=== PATIENT | female | born 1940 | race Caucasian/White ===

== ENCOUNTER → 2020-07-12 08:14 | Outpatient (BNVA) | payer MEDICARE, SELFPAY | PROVIDERS: PCP Internal Medicine; Visit Provider Internal Medicine | DX: I48.19 Other persistent atrial fibrillation (principal); Z95.3 Presence of xenogenic heart valve; Z95.828 Presence of other vascular implants and grafts; Z87.74 Personal history of (corrected) congenital malformations of heart and circulatory system | CPT/HCPCS: 93005; 99212 ==

== ENCOUNTER 2020-07-18 08:14 | Outpatient (REF) | payer MEDICARE, SELFPAY ==
[2020-07-18 11:22] LABS: Basophils Percent Auto 0.7 % (0-2); Monocytes Percent Auto 6.7 % (2-11)
[2020-07-18 11:24] LABS: Eosinophils Absolute Auto 0.4 X10*3/uL (0.0-0.4); Eosinophils Percent Auto 7.6 % (0-4); Hematocrit 39.6 % (37-47); Hemoglobin 12.6 g/dl (12.0-16.0); Imm Gran Abs Auto 0.02 X10*3/uL (0.00-0.03); Imm Gran Pct Auto 0.4 % (0.0-0.4); Lymphocytes Absolute Auto 1.8 X10*3/uL (1.2-4.9); Mean Corpuscular HGB Conc 31.8 g/dl (31.0-35.0); Mean Corpuscular Hemoglobin 28.1 pg (27.0-33.0); Mean Corpuscular Volume 88.4 fL (80-98); Mean Platelet Volume 9.7 fL (9.4-12.3); Monocytes Absolute Auto 0.4 X10*3/uL (0.1-1.2); Neutrophils Absolute Auto 2.9 X10*3/uL (2.0-8.3); Neutrophils Percent Auto 52.6 % (45-73); Red Blood Count 4.48 X10*6/uL (4.20-5.50); Red Cell Distribution Width 14.2 % (11.0-16.0); White Blood Count 5.5 X10*3/uL (4.8-10.8)
[2020-07-18 11:28] LABS: MANUAL DIFF FLAG NO; Platelet Count 126 X10*3/uL (160-400)
[2020-07-18 12:01] LABS: Alanine Aminotransferase 9 U/L (0-31); Albumin Level 4.1 g/dL (3.5-5.0); Alkaline Phosphatase 109 U/L (39-117); Anion Gap 14 (12-20); Aspartate Amino Transferase 19 U/L (5-31); Bilirubin Total 0.7 mg/dL (0.0-1.0); Blood Urea Nitrogen 15 mg/dL (9-16); Calcium 9.2 mg/dL (8.4-10.2); Carbon Dioxide 25 mmol/L (22-29); Chloride 106 mmol/L (96-108); Cholesterol 194 mg/dL; Estimated Glomerular Filt Rate > 60; Glucose Fasting 93 mg/dL (60-99); HDL Cholesterol 65 mg/dL; LDL Cholesterol Calculated 110 mg/dl; Sodium 141 mmol/L (135-145); Total Protein 7.3 g/dL (6.5-8.0); Triglycerides 98 mg/dL
[2020-07-18 12:24] LABS: Thyroid Stimulating Hormone 6.53 uIU/mL (0.32-4.0)
== END 2020-07-18 08:15 | disposition home or self-care (01) ==
LOC: HO.HMGCLDS 08:14
PROVIDERS: PCP Internal Medicine; Visit Provider Internal Medicine
DX: I48.11 Longstanding persistent atrial fibrillation (principal); I10 Essential (primary) hypertension; Z95.2 Presence of prosthetic heart valve
CPT/HCPCS: 36415; 80053; 80061; 84443; 85025

== ENCOUNTER → 2020-09-12 09:57 | Outpatient (REF) | payer MEDICARE, SELFPAY ==
--- NOTE | 2020-09-12 10:01 | CA_ITS ---
Transthoracic Echocardiogram Patient (Last, First, Middle): Sunita Lux, Gender: Female Date of : 1940 Age: 79 Procedure Date: 09/12/2020 Procedure Type: Transthoracic Echocardiogram Location: OP Height: 162.56 cm Weight: 63.5 kg BSA: 1.68 m2 Heart Rate: bpm BP: 150 / 98 mmHg Room Service Bellhop: [facility] MD: Aldo Conde MD Symptoms: Z95.3 - Presence of xenogenic heart valve Study Quality: Fair ECG Rhythm: Atrial Fibrillation Conclusions: - The left ventricular systolic function is normal. The calculated ejection fraction is 60% by biplane method. - There is mildly decreased right ventricular systolic function. - Mild biatrial enlargement. - A bioprosthetic aortic valve is present. The prosthetic aortic valve appears to be functioning normally. - There is mild mitral valve regurgitation. - There is mild to moderate tricuspid valve regurgitation. - Mild pulmonary hypertension is present. Findings Left Ventricle Normal left ventricular cavity size. There is normal left ventricular wall thickness. The left ventricular systolic function is normal. The calculated ejection fraction is 60% by biplane method. There is no evidence of regional wall motion abnormalities. Diastolic function is indeterminate on the basis of available data. Right Ventricle Normal right ventricular cavity size. There is mildly decreased right ventricular systolic function. Atria Mild biatrial enlargement. Aortic Valve A bioprosthetic aortic valve is present. The prosthetic aortic valve appears to be functioning normally. The mean gradient is 22 mmHg. There is no aortic valve regurgitation. Mitral Valve The mitral valve appears normal. There is mild mitral valve regurgitation. There is no mitral valve stenosis. Pulmonic Valve The pulmonic valve was not well visualized. Tricuspid Valve Normal tricuspid valve structure. There is mild to moderate tricuspid valve regurgitation. The right ventricular systolic pressure is 40 mmHg. Mild pulmonary hypertension is present. Great Vessels The aortic annulus, sinuses of valsalva, asc aorta, and aortic arch are normal in size. Venous The inferior vena cava is normal in size and collapses greater than 50% with inspiration. Pericardium/Pleural There is no evidence of pericardial effusion. Prior Study Comparison No significant change compared to prior study dated: 01/06/2019. Measurements 2D Linear Measurements RVIDd: 2.39 RVIDd Index: 1.42 IVSd: 0.99 0.6-0.9/0.6-1.0 cm LVIDd: 4.66 3.9-5.3/4.2-5.9 cm LVIDd Index: 2.77 2.4-3.2/2.2-3.1 cm/m2 LVIDs: 3.35 2.0-3.6 cm LVPWd: 1.13 0.7-1.1 cm Ao Root: 3.20 2.1-3.5 cm LA Diam: 4.60 2.7-3.8/3.0-4.0 cm LAIDs Index: 2.74 1.5-2.3 cm/m2 LV Mass: 219.32 67-162/88-224 g LV Mass Index: 130.55 43-95/49-115 g/m2 LVOT Diam: 1.90 3.0+(-)1.3 cm 2D Systolic Function EF 4C: 56.60 >55% EF 2C: 59.40 >55% EF BiP: 59.50 >55% Aortic Valve AoV Pk Galdino: 2.66 AoV Mn Galdino: 2.21 AoV VTI: 0.73 AoV Pk Grad: 28.00 Aov Mn Grad: 22.00 DANIELLE Cont.VTI: 0.60 LVOT LVOT Pk Galdino: 0.74 LVOT Mn Galdino: 0.49 LVOT VTI: 0.15 LVOT Pk Grad: 2.00 LVOT Mn Grad: 1.00 LVOT Diam: 1.90 LVOT Area: 2.84 Tricuspid Valve TR Pk Galdino: 2.83 TR Pk Grad: 32.00 RA Press: 8.00 RVSP: 40.00 Great Vessels Aorta Ao Root-2D: 3.20 2.0-3.7 cm Ao Asc: 2.80 2.1-3.4 cm Ao Arch: 2.60 Updated in Other Vendor System with Status of Final Aldo Conde MD electronically signed on 09/12/2020 4:13:37 PM with status of Final
--- NOTE | 2020-09-12 10:01 | ECG_ITS ---
Hook-up date: 2020-09-12 11:15:00 Duration: 26:40:00 Test Indications: AFIB Medications: 134861 QRS complexes 3305 Ventricular ectopics which represent 2 % of total QRS comp. * Supraventricular ectopics which represent % of total QRS comp. * Paced QRS complexs which represent % of total QRS comp. VENTRICULAR ECTOPY 3273 Isolated 0 Bigeminal Cycles 16 Couplets 0 Runs 0 Beats in Runs * Beats LONGEST at * BPM at :: -- * Beats FASTEST at * BPM at :: -- SUPRAVENTRICULAR ECTOPY * Isolated * Couplets * Runs * Beats in Runs * Beats LONGEST at * BPM at :: -- * Beats FASTEST at * BPM at :: -- HEART RATES 59 MIN at 21:13:24 2020-09-12 87 AVG 153 MAX at 08:58:25 2020-09-13 LONGEST RR 1.7520 secs at 04:10:32 2020-09-13 S-T LEVELS Channel 1 - 128 mm at 11:15:00 2020-09-12 - 128 mm at 11:15:00 2020-09-12 Channel 2 - 128 mm at 11:15:00 2020-09-12 - 128 mm at 11:15:00 2020-09-12 Channel 3 - 128 mm at 03:03:41 -- - 128 mm at 03:03:41 Underlying rhythm is atrial fibrillation; Average rate 87/min; range 59-153/min; About 16% of rates >100/min; Occasional Premature ventricular complexes - 3%; mostly isolated; some couplets; Patient did not report any symptoms in the diary Referred By: Joana Massey Overread By: JOANA MASSEY
== END ==
LOC: HO.CARD 09:57
PROVIDERS: Visit Provider Internal Medicine
DX: I48.19 Other persistent atrial fibrillation (principal); Z95.3 Presence of xenogenic heart valve
CPT/HCPCS: 93225; 93226; 93306

== ENCOUNTER → 2020-09-18 08:43 | Outpatient (BNVA) | payer MEDICARE, SELFPAY | PROVIDERS: PCP Internal Medicine; Visit Provider Internal Medicine | DX: I48.19 Other persistent atrial fibrillation (principal); Z95.3 Presence of xenogenic heart valve; Z95.828 Presence of other vascular implants and grafts; Z87.74 Personal history of (corrected) congenital malformations of heart and circulatory system | CPT/HCPCS: 99212 ==

== ENCOUNTER → 2021-09-12 08:59 | Outpatient (REF) | payer MEDICARE, SELFPAY ==
--- NOTE | 2021-09-12 09:03 | CA_ITS ---
Transthoracic Echocardiogram Patient (Last, First, Middle): Sunita Lux, Gender: Female Date of : 1940 Age: 80 Procedure Date: 09/12/2021 Procedure Type: Transthoracic Echocardiogram Location: OP Height: 167.64 cm Weight: 63.5 kg BSA: 1.72 m2 Heart Rate: 87 bpm BP: 138 / 72 mmHg Visual Inspector: ZENAIDA Referring MD: Aldo Conde MD Lobster Man: Abraham Melgar MD Symptoms: Z95.3 - Presence of xenogenic heart valve Study Quality: Adequate ECG Rhythm: Atrial Fibrillation Conclusions: - 1. Mildly reduced LV systolic function with LVEF of 45-50% 2. Moderate biatrial enlargement 3. Bioprosthetic aortic valve present with mean gradient of 13 mmHg, reduced compared to prior study 4. Normal RV systolic pressure 5. No gross pericardial effusion Findings Left Ventricle Normal left ventricular cavity size. There is normal left ventricular wall thickness. The left ventricular systolic function is mildly decreased. The visually estimated ejection fraction is between 45-50%. Diastolic function is indeterminate on the basis of available data. Right Ventricle Mildly increased right ventricular cavity size. There is mild to moderately decreased right ventricular systolic function. Atria The left atrium is moderately dilated. Interatrial shunt cannot be excluded. The right atrium is moderately dilated. Aortic Valve A bioprosthetic aortic valve is present. The peak aortic gradient is 25 mmHg.The mean gradient is 13 mmHg. There is no aortic valve regurgitation. the bioprosthetic valve is well seated with no abnormal rocking motion. Mean gradient compared to reported in the past is reduced. This could be due to reduced LV systolic function and stroke volume. Mitral Valve There is mild anterior and posterior mitral leaflet thickening. There is trace mitral valve regurgitation. There is no mitral valve stenosis. Pulmonic Valve The pulmonic valve was not well visualized. Tricuspid Valve Likely normal tricuspid valve structure and function. There is mild tricuspid valve regurgitation. The right ventricular systolic pressure is normal. Normal right atrial pressure. There is no evidence of pulmonary hypertension. Great Vessels All visible segments of the aorta are normal in size. The pulmonary artery was not well visualized. Venous The inferior vena cava is normal in size and collapses greater than 50% with inspiration. Pericardium/Pleural There is no evidence of pericardial effusion. Prior Study Comparison Changes noted compared to prior study dated: 09/12/2020. LV systolic and RV systolic function appeared to be reduced Measurements 2D Linear Measurements IVSd: 0.90 0.6-0.9/0.6-1.0 cm LVIDd: 4.40 3.9-5.3/4.2-5.9 cm LVIDd Index: 2.56 2.4-3.2/2.2-3.1 cm/m2 LVIDs: 3.16 2.0-3.6 cm LVPWd: 0.80 0.7-1.1 cm LA Diam: 4.00 2.7-3.8/3.0-4.0 cm LAIDs Index: 2.33 1.5-2.3 cm/m2 LV Mass: 146.54 67-162/88-224 g LV Mass Index: 85.20 43-95/49-115 g/m2 LVOT Diam: 2.20 3.0+(-)1.3 cm 2D Systolic Function EF Teich: 54.00 >55% EF 4C: 41.50 >55% Mitral Valve MV Pk E: 0.79 E'Medial: 7.07 E/E' Med: 11.20 Aortic Valve AoV Pk Galdino: 2.49 AoV Mn Galdino: 1.70 AoV VTI: 0.49 AoV Pk Grad: 25.00 Aov Mn Grad: 13.00 DANIELLE Cont.VTI: 1.15 LVOT LVOT Pk Galdino: 0.79 LVOT Mn Galdino: 0.52 LVOT VTI: 0.15 LVOT Pk Grad: 2.00 LVOT Mn Grad: 1.00 LVOT Diam: 2.20 LVOT Area: 3.80 Diastolic Function MV Pk E: 0.79 E'Medial: 7.07 E/E' Med: 11.20 Right Ventricle TAPSE (mm): 12.20 TVS' Galdino: 7.90 Tricuspid Valve TR Pk Galdino: 2.59 TR Pk Grad: 27.00 RA Press: 3.00 RVSP: 30.00 Great Vessels Aorta Sinus of Valsalva: 3.40 2.0-3.5 cm Ao Asc: 2.80 2.1-3.4 cm Pulmonary Valve PV Pk Galdino: 0.84 Peak PV Grad: 3.00 Updated in Other Vendor System with Status of Final Abraham Melgar MD electronically signed on 09/13/2021 9:10:19 AM with status of Final
--- NOTE | 2021-09-12 09:03 | ECG_ITS ---
Hook-up date: 2021-09-12 09:18:00 Duration: 24:12:00 Test Indications: PERSISTANT AFIB Medications: 870914 QRS complexes * Ventricular ectopics which represent % of total QRS comp. * Supraventricular ectopics which represent % of total QRS comp. * Paced QRS complexs which represent % of total QRS comp. VENTRICULAR ECTOPY * Isolated * Bigeminal Cycles * Couplets * Runs * Beats in Runs * Beats LONGEST at * BPM at :: -- * Beats FASTEST at * BPM at :: -- SUPRAVENTRICULAR ECTOPY * Isolated * Couplets * Runs * Beats in Runs * Beats LONGEST at * BPM at :: -- * Beats FASTEST at * BPM at :: -- HEART RATES 47 MIN at 06:41:31 2021-09-13 78 AVG 135 MAX at 12:48:57 2021-09-12 LONGEST RR 1.8080 secs at 22:08:16 2021-09-12 S-T LEVELS Channel 1 - 128 mm at 09:18:00 2021-09-12 - 128 mm at 09:18:00 2021-09-12 Channel 2 - 128 mm at 09:18:00 2021-09-12 - 128 mm at 09:18:00 2021-09-12 Channel 3 - 128 mm at 02:83:71 -- - 128 mm at 02:83:71 Basic rhythm Atrial fibrillation Good rate control with average HR of 78 bpm No long pause or profound bradycardia Patient did not report any symptoms in the diary Referred By: Aldo Conde Overread By: JUSTICE BRANDON MD
== END ==
LOC: HO.CARD 08:59
PROVIDERS: Visit Provider Internal Medicine
DX: I48.19 Other persistent atrial fibrillation (principal); Z95.3 Presence of xenogenic heart valve
CPT/HCPCS: 93225; 93226; 93306

== ENCOUNTER → 2021-09-25 08:36 | Outpatient (BNVA) | payer MEDICARE, SELFPAY | PROVIDERS: PCP Internal Medicine; Referring Provider Internal Medicine; Visit Provider Internal Medicine | DX: I48.19 Other persistent atrial fibrillation (principal); I42.9 Cardiomyopathy, unspecified; I10 Essential (primary) hypertension; Z87.74 Personal history of (corrected) congenital malformations of heart and circulatory system; Z95.3 Presence of xenogenic heart valve; Z79.01 Long term (current) use of anticoagulants; Z95.828 Presence of other vascular implants and grafts | CPT/HCPCS: 93005; 99212 ==

== ENCOUNTER → 2022-09-18 14:14 | Outpatient (BNVA) | payer MEDICARE, SELFPAY | PROVIDERS: PCP Internal Medicine; Referring Provider Internal Medicine; Visit Provider Internal Medicine | DX: R55 Syncope and collapse (principal); I48.19 Other persistent atrial fibrillation; I42.9 Cardiomyopathy, unspecified; I10 Essential (primary) hypertension; Z79.899 Other long term (current) drug therapy; Z95.3 Presence of xenogenic heart valve; Z95.828 Presence of other vascular implants and grafts | CPT/HCPCS: 93005; 99212 ==

== ENCOUNTER 2022-09-19 13:11 | Outpatient (REF) | payer MEDICARE, SELFPAY ==
--- NOTE | ~2022-09-19 | MR_ITS ---
EXAMINATION: MR BRAIN WITHOUT CONTRAST CLINICAL INFORMATION: Decreased hearing. COMPARISON: None available. TECHNIQUE: Multiplanar, multisequence imaging of the brain was performed without contrast. FINDINGS: No diffusion abnormalities are identified to suggest an acute infarct. The ventricles are normal in size. No mass effect or midline shift is seen. Vihshkzg-hp-ieqpab chronic white matter microangiopathic changes are present in both cerebral hemispheres and in the rosie. No extra-axial fluid collections are seen. There are small chronic lacunar infarcts in the cerebellum. There are a mild amount of scattered round low signal foci of susceptibility artifact predominantly at the mahajan-white matter junction in both cerebral hemispheres and in the cerebellum which are suspected to represent chronic microhemorrhages. Small chronic infarcts are also present in the centrum semiovale bilaterally. The craniovertebral junction, marrow signal, and midline structures are normal. The major intracranial flow voids at the level of the pilot station of [place] are preserved. The dural venous sinus flow voids are maintained. The mastoid air cells are well aerated. There is a bjri-dq-ehtoegpy fluid level dependently in the left maxillary sinus. Additional small fluid levels are present in the right sphenoid sinus cavity. Moderate ethmoid sinus mucosal disease evident. Mild mucosal thickening lines the philippe of the left frontal sinus. MR/MR head/brain wo con IMPRESSION: No acute intracranial process. Hasjadms-xr-tdjqtn chronic white matter microangiopathy and scattered chronic lacunar infarcts. Mild amount of small microhemorrhages in the brain parenchyma which are predominantly peripheral in location. Pattern of imaging findings may be due to underlying amyloid angiopathy. Moderate ethmoid sinus mucosal disease and jtny-ip-fwavuvjw fluid levels in the left maxillary and right sphenoid sinus cavities; correlate for any acute symptomatology.
--- NOTE | 2022-09-19 14:35 | CA_ITS ---
Transthoracic Echocardiogram Patient (Last, First, Middle): Sunita Lux, Gender: Female Date of : 1940 Age: 81 Procedure Date: 09/19/2022 Procedure Type: Transthoracic Echocardiogram Location: OP Height: 167.64 cm Weight: 60.78 kg BSA: 1.69 m2 Heart Rate: bpm BP: 130 / 70 mmHg Radiology Nurse: TO Referring MD: Aldo Conde MD Water Technician: Abraham Melgar MD Symptoms: Z95.3 - Presence of xenogenic heart valve Study Quality: Fair ECG Rhythm: Atrial Fibrillation Conclusions: - 1. Low normal LV ejection fraction of 50-55% 2. Biatrial enlargement, left greater than right 3. Normally function bioprosthetic aortic valve with mean gradient of 17 mmHg 4. Upper limits of normal RV systolic pressure 5. No gross pericardial effusion Findings Left Ventricle Normal left ventricular cavity size. There is normal left ventricular wall thickness. The left ventricular systolic function is low normal. The visually estimated ejection fraction is between 50-55%. Right Ventricle Normal right ventricular cavity size and systolic function. Atria The left atrium is moderately dilated. There is no evidence of interatrial shunt. The right atrium is mildly dilated. Aortic Valve A bioprosthetic aortic valve is present. The prosthetic aortic valve appears to be functioning normally. The mean gradient is 17 mmHg. There is no aortic valve regurgitation. the bioprosthetic aortic valve is well seated with no abnormal rocking motion. The leaflet mobility appear to be within normal limits. The measure mean gradient are at 17 mmHg, could be variable and slightly higher compared to prior study due to atrial fibrillation Mitral Valve There is mild anterior and posterior mitral leaflet thickening. There is mild mitral annular calcification. There is mild mitral valve regurgitation. There is no mitral valve stenosis. Pulmonic Valve The pulmonic valve is likely normal. Tricuspid Valve Normal tricuspid valve structure. There is mild to moderate tricuspid valve regurgitation. Normal right atrial pressure. There is no evidence of pulmonary hypertension. Great Vessels All visible segments of the aorta are normal in size. The pulmonary artery was not well visualized. Venous The inferior vena cava is normal in size and collapses greater than 50% with inspiration. Pericardium/Pleural There is no evidence of pericardial effusion. Prior Study Comparison No significant change compared to prior study dated: 09/12/2021. Measurements 2D Linear Measurements IVSd: 1.17 0.6-0.9/0.6-1.0 cm LVIDd: 4.10 3.9-5.3/4.2-5.9 cm LVIDd Index: 2.43 2.4-3.2/2.2-3.1 cm/m2 LVIDs: 2.49 2.0-3.6 cm LVPWd: 0.83 0.7-1.1 cm LA Diam: 4.20 2.7-3.8/3.0-4.0 cm LAIDs Index: 2.49 1.5-2.3 cm/m2 LV Mass: 164.85 67-162/88-224 g LV Mass Index: 97.54 43-95/49-115 g/m2 LVOT Diam: 2.10 3.0+(-)1.3 cm 2D Systolic Function EF 4C: 51.50 >55% EF 2C: 51.70 >55% EF BiP: 50.50 >55% Mitral Valve MV Pk E: 0.78 MV Decel Time: 233.00 E'Lateral: 9.36 E'Medial: 9.36 E/E' Med: 8.40 E/E' Lat: 8.40 PHT: 68.00 MVA PHT: 3.24 Decel [place]: 3.36 Aortic Valve AoV Pk Galdino: 2.74 AoV Mn Galdino: 1.93 AoV VTI: 0.62 AoV Pk Grad: 30.00 Aov Mn Grad: 17.00 DANIELLE Cont.VTI: 1.00 LVOT LVOT Pk Galdino: 0.80 LVOT Mn Galdino: 0.54 LVOT VTI: 0.18 LVOT Pk Grad: 3.00 LVOT Mn Grad: 1.00 LVOT Diam: 2.10 LVOT Area: 3.46 Diastolic Function MV Pk E: 0.78 E'Medial: 9.36 E/E' Med: 8.40 E' Laterial: 9.36 E/E' Lat: 8.40 Right Ventricle TAPSE (mm): 16.30 TVS' Galdino: 7.40 Tricuspid Valve TR Pk Galdino: 2.87 TR Pk Grad: 33.00 RA Press: 3.00 RVSP: 36.00 Great Vessels Aorta Sinus of Valsalva: 3.58 2.0-3.5 cm Ao Asc: 3.00 2.1-3.4 cm Updated in Other Vendor System with Status of Final Abraham Melgar MD electronically signed on 09/19/2022 4:18:38 PM with status of Final
== END 2022-09-19 13:12 | disposition home or self-care (01) ==
LOC: HO.MRI 13:11
PROVIDERS: Visit Provider Internal Medicine
DX: I48.19 Other persistent atrial fibrillation (principal); Z86.73 Personal history of transient ischemic attack (TIA), and cerebral infarction without residual deficits; Z95.3 Presence of xenogenic heart valve
CPT/HCPCS: 70551; 93242; 93306

== ENCOUNTER → 2022-09-19 14:35 | Outpatient (BNV) | payer MEDICARE, SELFPAY | PROVIDERS: Visit Provider Internal Medicine Cardiovascular Disease | DX: I48.19 Other persistent atrial fibrillation (principal) | CPT/HCPCS: 93244; 93306 ==

== ENCOUNTER 2022-10-30 13:09 | Outpatient (AMB) | payer MEDICARE, SELFPAY ==
--- NOTE | 2022-10-30 13:29 | A.OFFVIS_ITS ---
Intake Vital Signs 10/30/22 13:30 Height 5 ft 6 in Weight 140 lb 10.479 oz BMI 22.7 BP 166/70 H Blood Pressure Location Rt brachial Position Sitting Pulse 75 Intake Visit Reasons: 1 mth f/up mri/ echo Intake Note: 1 follow up Philosophy And Religion Instructor Required: No Accompanied by: Self / Same As Patient Allergies penicillin V Allergy (Unknown, Verified 10/30/22 13:32) unk Medication List - Last Reconciled 10/30/22 by Aldo Conde MD amlodipine 5 mg PO DAILY aspirin (Alfonso Chewable Low Dose Aspirin) 81 mg PO DAILY metoprolol succinate ER 50 mg PO BID HPI HPI Comments History of Present Illness Details Sunita returns for follow-up. Various cardiac issues including history of aortic valve replacement, ascending aortic graft as well as atrial fibrillation. To recall, she was admitted in 2018 for acute heart failure and also had atrial fibrillation with rapid rate. She had a new diagnosis of severe aortic stenosis. Cardiac catheterization then did not reveal any significant coronary disease. Then underwent bioprosthetic aortic valve replacement. Preoperative transesophageal echocardiogram was positive for thrombus in the left atrial appendage and the appendage itself was actually removed during surgery. Her ascending aorta was also dilated and she underwent replacement of the same. She has been cardioverted for the atrial fibrillation as well. However she went back into atrial fibrillation and then was left on rate control. Recently seen for syncopal episode but no clear etiology detected. She underwent brain MRI and repeat echocardiogram. Overall, feeling good. No new complaints. No cardiac symptoms whatsoever. No recurrent syncopal episodes. [facility] Medical History (Updated 09/18/22 @ 14:36 by Aldo Conde MD) History of bicuspid aortic valve Persistent atrial fibrillation Surgical History History of aortic valve replacement with bioprosthetic valve (~03/2017) History of cardiac catheterization (~03/2017) History of transesophageal echocardiography (EDA) (~03/2017) Status post aortic valve replacement with bioprosthetic valve Status post ascending aortic replacement Family History Father No problems noted. Mother No problems noted. Social History Patient Tobacco Use Status: Never used Tobacco Review of Systems Const Denies weakness ENT Denies dizziness Card Denies chest pain, Denies chest pain with activity, Denies syncope, Denies rapid heart rate, Denies pedal edema, Denies edema, Denies leg edema, Denies lightheadedness, Denies palpitations, Denies dyspnea, Denies dyspnea on exertion and Denies orthopnea Resp Denies cough, Denies dyspnea and Denies dyspnea on exertion GI Denies hematochezia and Denies change in stool character Musc Denies abnormal gait, Denies muscle cramps, Denies muscle weakness, Denies numbness, Denies radiating pain into limb and Denies tingling Neuro Denies abnormal gait, Denies dizziness, Denies syncope, Denies numbness, Denies tingling and Denies weakness Endo Denies palpitations Physical Exam Vital Signs: Last Vital Signs Pulse 75 10/30/22 13:30 BP 166/70 H 10/30/22 13:30 BMI result Body Mass Index 22.7 Const General: comfortable and no acute distress Orientation/consciousness: patient oriented x3 HEENT Other: Unremarkable Head: Yes normal to inspection Neck Neck: Yes normal visual inspection Chest Chest palpation & inspection: normal inspection of the chest Resp Auscultation: clear to auscultation bilaterally Cardio Palpation: normal PMI Heart sounds: S1 normal heart sound present, S2 normal heart sound present, no gallops, Murmur heart sound present systolic II/ and at the right sternal border and no rubs GI Palpation (GI): Soft to palpation Back/Spine/Pelvis Other: unremarkable Skin General skin exam: no rashes or lesions noted Neuro General: patient oriented x3 Extrem General: Yes normal to inspection Psych Mental Status: mental status grossly normal Assessment & Plan Assessment & Plan (1) Syncope: Code(s): R55 - Syncope and collapse Plan: Brain MRI completed. No acute process. Moderate to severe chronic white matter microangiopathy. Chronic lacunar infarcts. Small microhemorrhage. Possible amyloid angiopathy. Referred to neurology for further evaluation. (2) Persistent atrial fibrillation: Comment: Status post left atrial appendage removal during surgery. Code(s): I48.19 - Other persistent atrial fibrillation Plan: Continue beta-blockers. She used to take Eliquis, but did not like the side effects and hence stopped. Then we tried Xarelto but it was too expensive. She has also been on Coumadin but did not like that either. She remains on aspirin. (3) Status post aortic valve replacement with bioprosthetic valve: Comment: 23 mm Batsheva- Sanchez Magna valve; 2018; preoperative cardiac catheterization with minimal luminal irregularities and mild RCA disease. Code(s): Z95.3 - Presence of xenogenic heart valve Plan: In the most recent echocardiogram, normally functioning bioprosthetic aortic valve. Mean gradient across the valve was 17 mm Hg. Infective endocarditis prophylaxis per protocol. Unless Neurology contraindications, continue aspirin. (4) Status post ascending aortic replacement: Comment: #28 Hemashield graft 2018. Code(s): Z95.828 - Presence of other vascular implants and grafts Plan: CT scans are getting followed through [facility] cardiac surgery. In the most recent study from july 2022, stable findings. (5) Cardiomyopathy: Code(s): I42.9 - Cardiomyopathy, unspecified Plan: Low normal LVEF on the last echocardiogram. No clinical symptoms or signs of congestive heart failure. (6) Essential hypertension: Code(s): I10 - Essential (primary) hypertension Plan: Blood pressure on the higher side today. Home meds are metoprolol succinate and amlodipine. Strongly advised to check some home blood pressures. Based on readings, probably go up on the amlodipine. In the past, she has taken Losartan but there was question of rash. 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
[2022-10-30 13:30] VITALS: BP 166/70; PULSE 75; BMI 22.7
== END 2022-10-30 13:44 | disposition home or self-care (01) ==
PROVIDERS: PCP Internal Medicine; Referring Provider Internal Medicine; Visit Provider Internal Medicine
DX: R55 Syncope and collapse (principal); I48.19 Other persistent atrial fibrillation; Z95.3 Presence of xenogenic heart valve; Z95.828 Presence of other vascular implants and grafts; I42.9 Cardiomyopathy, unspecified; I10 Essential (primary) hypertension
CPT/HCPCS: 99214

== ENCOUNTER → 2022-10-30 13:09 | Outpatient (BNVA) | payer MEDICARE, SELFPAY | PROVIDERS: PCP Internal Medicine; Referring Provider Internal Medicine; Visit Provider Internal Medicine | DX: I48.19 Other persistent atrial fibrillation (principal); I10 Essential (primary) hypertension; I42.9 Cardiomyopathy, unspecified; R55 Syncope and collapse; Z95.3 Presence of xenogenic heart valve; Z95.828 Presence of other vascular implants and grafts | CPT/HCPCS: 99212 ==

== ENCOUNTER 2023-02-10 08:17 | Outpatient (REF) | payer MEDICARE, SELFPAY ==
[2023-02-10 08:50] LABS: MANUAL DIFF FLAG NO
[2023-02-10 09:08] LABS: Basophils Percent Auto 0.6 % (0-2); Eosinophils Absolute Auto 0.2 X10*3/uL (0.0-0.4); Eosinophils Percent Auto 4.5 % (0-4); Hematocrit 37.8 % (37.0-47.0); Hemoglobin 12.6 g/dl (12.0-16.0); Imm Gran Abs Auto 0.02 X10*3/uL (0.00-0.03); Imm Gran Pct Auto 0.4 % (0.0-0.4); Lymphocytes Absolute Auto 1.4 X10*3/uL (1.2-4.9); Lymphocytes Percent Auto 28.5 % (20-40); Mean Corpuscular HGB Conc 33.3 g/dl (31.0-35.0); Mean Corpuscular Hemoglobin 29.7 pg (27.0-33.0); Mean Corpuscular Volume 89.2 fL (80.0-98.0); Mean Platelet Volume 8.9 fL (9.4-12.3); Monocytes Absolute Auto 0.4 X10*3/uL (0.1-1.2); Monocytes Percent Auto 8.2 % (2-11); Neutrophils Absolute Auto 2.8 x10*3/uL (2.0-8.3); Neutrophils Percent Auto 57.8 % (45-73); Platelet Count 146 X10*3/uL (160-400); Red Blood Count 4.24 X10*6/uL (4.20-5.50); Red Cell Distribution Width 12.7 % (11.0-16.0); White Blood Count 4.9 X10*3/uL (4.8-10.8)
[2023-02-10 10:05] LABS: Alanine Aminotransferase 13 U/L (0-31); Albumin Level 3.9 g/dL (3.5-5.0); Alkaline Phosphatase 106 U/L (39-117); Anion Gap 10 (12-20); Aspartate Amino Transferase 19 U/L (5-31); Bilirubin Total 0.7 mg/dL (0.0-1.0); Blood Urea Nitrogen 14 mg/dL (9-16); Calcium 9.3 mg/dL (8.4-10.2); Carbon Dioxide 27 mmol/L (22-29); Chloride 106 mmol/L (96-108); Cholesterol 163 mg/dL (<200); Estimated Glomerular Filt Rate > 60; Glucose Fasting 98 mg/dL (60-99); HDL Cholesterol 53 mg/dL (>40); LDL Cholesterol Calculated 94 mg/dL (<100); Potassium 4.1 mmol/L (3.3-5.1); Sodium 139 mmol/L (135-145); Total Protein 7.7 g/dL (6.5-8.0); Triglycerides 83 mg/dL (<150)
[2023-02-10 10:20] LABS: Thyroid Stimulating Hormone 5.28 uIU/mL (0.32-4.0)
== END 2023-02-10 08:18 | disposition home or self-care (01) ==
LOC: HO.LAB 08:17
PROVIDERS: PCP Internal Medicine; Visit Provider Internal Medicine
DX: I48.11 Longstanding persistent atrial fibrillation (principal); I10 Essential (primary) hypertension; R91.1 Solitary pulmonary nodule; Z95.2 Presence of prosthetic heart valve
CPT/HCPCS: 36415; 80053; 80061; 84443; 85025

== ENCOUNTER 2023-05-28 07:44 | Outpatient (AMB) | payer MEDICARE, SELFPAY ==
[2023-05-28 08:21] VITALS: BP 150/88; PULSE 87; BMI 22.4
--- NOTE | 2023-05-28 08:21 | MHC.OFFVIS ---
Intake Vital Signs 05/28/23 08:21 Height 5 ft 6 in Weight 138 lb 14.259 oz BMI 22.4 BP 150/88 H Blood Pressure Location Lt brachial Position Sitting Pulse 87 Intake Visit Reasons: r/s 6 mos followup Intake Note: 6 month follow up Service Correspondent Required: No Accompanied by: Self / Same As Patient Allergies penicillin V Allergy (Unknown, Verified 10/30/22 13:32) unk Medication List - Last Reconciled 05/28/23 by Aldo Conde MD amlodipine 5 mg PO DAILY aspirin (Alfonso Chewable Low Dose Aspirin) 81 mg PO DAILY metoprolol succinate ER 50 mg PO BID HPI HPI Comments History of Present Illness Details Suinta returns for follow-up. Various cardiac issues including history of aortic valve replacement, ascending aortic graft as well as atrial fibrillation. She is generally resistant to medical care unless the situation is truly urgent/serious. To recall, she was admitted in 2018 for acute heart failure and also had atrial fibrillation with rapid rate. She had a new diagnosis of severe aortic stenosis. Cardiac catheterization then did not reveal any significant coronary disease. Then underwent bioprosthetic aortic valve replacement. Preoperative transesophageal echocardiogram was positive for thrombus in the left atrial appendage and the appendage itself was actually removed during surgery. Her ascending aorta was also dilated and she underwent replacement of the same. She has been cardioverted for the atrial fibrillation as well. However she went back into atrial fibrillation and then was left on rate control. More recently, had a syncopal episode but no cardiac etiology. She underwent brain MRI and referred to neurology but she did not want to keep any appointments for that. No new cardiac symptoms. [facility] Medical History (Updated 09/18/22 @ 14:36 by Aldo Conde MD) History of bicuspid aortic valve Persistent atrial fibrillation Surgical History Status post ascending aortic replacement Status post aortic valve replacement with bioprosthetic valve History of cardiac catheterization (~03/2017) History of transesophageal echocardiography (EDA) (~03/2017) History of aortic valve replacement with bioprosthetic valve (~03/2017) Family History Father No problems noted. Mother No problems noted. Social History Patient Tobacco Use Status: Never used Tobacco Review of Systems Const Denies weakness ENT Denies dizziness Card Denies chest pain, Denies chest pain with activity, Denies syncope, Denies rapid heart rate, Denies pedal edema, Denies edema, Denies leg edema, Denies lightheadedness, Denies palpitations, Denies dyspnea, Denies dyspnea on exertion and Denies orthopnea Resp Denies cough, Denies dyspnea and Denies dyspnea on exertion GI Denies hematochezia and Denies change in stool character Musc Denies abnormal gait, Denies muscle cramps, Denies muscle weakness, Denies numbness, Denies radiating pain into limb and Denies tingling Neuro Denies abnormal gait, Denies dizziness, Denies syncope, Denies numbness, Denies tingling and Denies weakness Endo Denies palpitations Physical Exam Vital Signs: Last Vital Signs Pulse 87 05/28/23 08:21 BP 150/88 H 05/28/23 08:21 BMI result Body Mass Index 22.4 Const General: no acute distress Orientation/consciousness: patient oriented x3 HEENT Other: Unremarkable Head: Yes normal to inspection Neck Neck: Yes normal visual inspection Chest Chest palpation & inspection: normal inspection of the chest Resp Auscultation: clear to auscultation bilaterally Cardio Palpation: normal PMI Heart sounds: S1 normal heart sound present, S2 normal heart sound present, no gallops, Murmur heart sound present systolic III/ and at the right sternal border and no rubs GI Palpation (GI): Soft to palpation Back/Spine/Pelvis Other: unremarkable Skin General skin exam: no rashes or lesions noted Neuro General: patient oriented x3 Extrem General: Yes normal to inspection Psych Mental Status: mental status grossly normal Assessment & Plan Assessment & Plan (1) Persistent atrial fibrillation: Comment: Status post left atrial appendage removal during surgery. Code(s): I48.19 - Other persistent atrial fibrillation Plan: Continue beta-blockers. She used to take Eliquis, but did not like the side effects and hence stopped. Then we tried Xarelto but it was too expensive. She has also been on Coumadin but did not like that either. She states she is taking aspirin only intermittently. (2) Status post aortic valve replacement with bioprosthetic valve: Comment: 23 mm Batsheva- Sanchez Magna valve; 2018; preoperative cardiac catheterization with minimal luminal irregularities and mild RCA disease. Code(s): Z95.3 - Presence of xenogenic heart valve Plan: In the most recent echocardiogram, normally functioning bioprosthetic aortic valve. Mean gradient across the valve was 17 mm Hg. Infective endocarditis prophylaxis per protocol. Remains on aspirin intermittently. (3) Status post ascending aortic replacement: Comment: #28 Hemashield graft 2018. Code(s): Z95.828 - Presence of other vascular implants and grafts Plan: CT scans are getting followed through [facility] cardiac surgery. In the most recent study from july 2022, stable findings. (4) Cardiomyopathy: Code(s): I42.9 - Cardiomyopathy, unspecified Plan: Low normal LVEF on the last echocardiogram. No clinical symptoms or signs of congestive heart failure. (5) Essential hypertension: Code(s): I10 - Essential (primary) hypertension Plan: We can increase the amlodipine dose from 5 mg to 10 mg daily. In the past, she has taken Losartan but there was question of rash. 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 Chronic lacunar infarcts. Small microhemorrhage. Possible amyloid angiopathy. Referred to neurology but patient does not want to go. Medications: New amlodipine 10 mg PO DAILY 90 tabs 3RF Discontinued amlodipine Discontinued Reason: Doctor's Order 5 mg PO DAILY 90 tabs 3RF Coding Level of Care Code Est Pt Level 4 (75426) Diagnoses Persistent atrial fibrillation I48.19 Status post aortic valve replacement with bioprosthetic valve Z95.3 Status post ascending aortic replacement Z95.828 Cardiomyopathy I42.9 Essential hypertension I10 Syncope R55
== END 2023-05-28 08:33 | disposition home or self-care (01) ==
PROVIDERS: PCP Internal Medicine; Visit Provider Internal Medicine
DX: I48.19 Other persistent atrial fibrillation (principal); Z95.3 Presence of xenogenic heart valve; Z95.828 Presence of other vascular implants and grafts; I42.9 Cardiomyopathy, unspecified; I10 Essential (primary) hypertension; R55 Syncope and collapse
CPT/HCPCS: 99214

== ENCOUNTER → 2023-05-28 07:44 | Outpatient (BNVA) | payer MEDICARE, SELFPAY | PROVIDERS: PCP Internal Medicine; Visit Provider Internal Medicine | DX: I48.19 Other persistent atrial fibrillation (principal); I42.9 Cardiomyopathy, unspecified; I10 Essential (primary) hypertension; R55 Syncope and collapse; Z95.3 Presence of xenogenic heart valve; Z95.828 Presence of other vascular implants and grafts | CPT/HCPCS: 99212 ==

== ENCOUNTER 2023-08-06 09:04 | Outpatient (REF) | payer MEDICARE, SELFPAY ==
[2023-08-06 10:53] LABS: MANUAL DIFF FLAG NO
[2023-08-06 11:03] LABS: Basophils Percent Auto 0.8 % (0-2); Eosinophils Absolute Auto 0.2 X10*3/uL (0.0-0.4); Eosinophils Percent Auto 4.2 % (0-4); Hematocrit 36.9 % (37.0-47.0); Hemoglobin 12.3 g/dl (12.0-16.0); Imm Gran Abs Auto 0.01 X10*3/uL (0.00-0.03); Imm Gran Pct Auto 0.2 % (0.0-0.4); Lymphocytes Absolute Auto 1.8 X10*3/uL (1.2-4.9); Lymphocytes Percent Auto 35.2 % (20-40); Mean Corpuscular HGB Conc 33.3 g/dl (31.0-35.0); Mean Corpuscular Hemoglobin 30.5 pg (27.0-33.0); Mean Corpuscular Volume 91.6 fL (80.0-98.0); Mean Platelet Volume 9.6 fL (9.4-12.3); Monocytes Absolute Auto 0.4 X10*3/uL (0.1-1.2); Monocytes Percent Auto 8.1 % (2-11); Neutrophils Absolute Auto 2.6 x10*3/uL (2.0-8.3); Neutrophils Percent Auto 51.5 % (45-73); Platelet Count 141 X10*3/uL (160-400); Red Blood Count 4.03 X10*6/uL (4.20-5.50); White Blood Count 5.1 X10*3/uL (4.8-10.8)
[2023-08-06 11:35] LABS: Alanine Aminotransferase 11 U/L (0-31); Albumin Level 3.7 g/dL (3.5-5.0); Alkaline Phosphatase 92 U/L (39-117); Anion Gap 10 (12-20); Aspartate Amino Transferase 15 U/L (5-31); Bilirubin Total 0.6 mg/dL (0.0-1.0); Blood Urea Nitrogen 12 mg/dL (9-16); Calcium 9.2 mg/dL (8.4-10.2); Carbon Dioxide 27 mmol/L (22-29); Chloride 107 mmol/L (96-108); Cholesterol 171 mg/dL (<200); Estimated Glomerular Filt Rate > 60; Glucose Fasting 109 mg/dL (60-99); HDL Cholesterol 56 mg/dL (>40); LDL Cholesterol Calculated 98 mg/dL (<100); Potassium 4.3 mmol/L (3.3-5.1); Sodium 140 mmol/L (135-145); Total Protein 7.4 g/dL (6.5-8.0); Triglycerides 87 mg/dL (<150)
[2023-08-06 11:52] LABS: Thyroid Stimulating Hormone 6.95 uIU/mL (0.32-4.0)
== END 2023-08-06 09:05 | disposition home or self-care (01) ==
LOC: HO.10HDL 09:04
PROVIDERS: Visit Provider Internal Medicine
DX: I48.11 Longstanding persistent atrial fibrillation (principal); Z95.2 Presence of prosthetic heart valve; I10 Essential (primary) hypertension; R91.1 Solitary pulmonary nodule
CPT/HCPCS: 36415; 80053; 80061; 84443; 85025

== ENCOUNTER → 2023-12-01 07:47 | Outpatient (BNVA) | payer MEDICARE, SELFPAY | PROVIDERS: PCP Internal Medicine; Visit Provider Internal Medicine ==

== ENCOUNTER 2023-12-01 08:25 | Outpatient (REF) | payer MEDICARE, SELFPAY ==
[2023-12-01 11:21] LABS: Anion Gap 13 (12-20); Blood Urea Nitrogen 14 mg/dL (9-16); Calcium 9.9 mg/dL (8.4-10.2); Carbon Dioxide 29 mmol/L (22-29); Chloride 102 mmol/L (96-108); Estimated Glomerular Filt Rate > 60; Glucose Random 101 mg/dL (60-115); Sodium 140 mmol/L (135-145); TSH reflex Free T4 6.66 uIU/mL (0.32-4.0)
[2023-12-01 15:27] LABS: Free T4 (Free Thyroxine) 0.76 ng/dL (0.71-1.85)
== END 2023-12-01 08:26 | disposition home or self-care (01) ==
LOC: HO.10HDL 08:25
PROVIDERS: Visit Provider Internal Medicine
DX: I48.11 Longstanding persistent atrial fibrillation (principal); I10 Essential (primary) hypertension; Z95.2 Presence of prosthetic heart valve
CPT/HCPCS: 36415; 80048; 84439; 84443

== ENCOUNTER 2024-06-21 10:07 | Outpatient (AMB) | payer MEDICARE, SELFPAY ==
--- NOTE | 2024-06-21 10:30 | A.OFFVIS_ITS ---
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 Her last prior visit to our office was 05/28/2023. Today she reports that in the last several months she has had at least 3 episodes of fainting. She states that she has been doing her usual activity and then finds herself on the floor. She does not recall any symptoms prior to the event. When she gets up she is feeling okay. None of these episodes have been witnessed. She is unclear if she has had full syncope but does not recall hitting the floor. She denies any chest discomfort at rest or with activity. No concerning shortness of breath, PND, orthopnea or edema. No heart palpitations. She tells me she takes 3 medications but is unsure of what they are. She knows that she only takes aspirin occasionally. She has previously declined full anticoagulation. She is not using salt in her diet. Friend is present. [facility] Medical History History of bicuspid aortic valve Persistent atrial fibrillation Surgical History Status post ascending aortic replacement Status post aortic valve replacement with bioprosthetic valve History of cardiac catheterization (~03/2017) History of transesophageal echocardiography (EDA) (~03/2017) History of aortic valve replacement with bioprosthetic valve (~03/2017) Family History Father No problems noted. Mother No problems noted. Social History Patient Tobacco Use Status: Never used Tobacco Review of Systems Const Details: 3 falls - ? syncope All systems reviewed & are unremarkable except as noted in HPI and below ENT Denies dizziness Card Denies chest pain, Denies chest pain at rest, Denies chest pain with activity, Denies rapid heart rate, Denies pedal edema, Denies edema, Denies leg edema, Denies lightheadedness, Denies palpitations, Denies dyspnea, Denies dyspnea on exertion and Denies orthopnea Resp Denies cough, Denies dyspnea and Denies dyspnea on exertion GI Denies hematochezia and Denies change in stool character Musc Reports abnormal gait (uses cane), Denies limited range of motion, Denies muscle cramps, Denies muscle weakness, Denies numbness, Denies radiating pain into limb, Denies stiffness and Denies tingling Neuro Reports abnormal gait (uses cane), Denies dizziness, Denies numbness and Denies tingling Endo Denies palpitations Physical Exam Vital Signs: Last Vital Signs Pulse 110 H 06/21/24 10:43 BP 178/85 H 06/21/24 10:43 BMI result Body Mass Index 20.2 Const General: cooperative, comfortable and no acute distress Orientation/consciousness: patient oriented x3 Neck Neck: Yes normal visual inspection Resp Effort & Inspection: normal respiratory effort Auscultation: clear to auscultation bilaterally, no rales, no rhonchi and no wheezes Cardio Jugular venous distension: no JVD Rate: regular rate Rhythm: abnormal rhythm Heart sounds: S1 normal heart sound present, S2 normal heart sound present, no gallops, Murmur heart sound present (systolic murmur 2/6 left sternal border) and no rubs Neuro General: patient oriented x3 Extrem General: Yes normal to inspection, No no pedal edema and No calf tenderness Psych Appearance: grossly normal Mental Status: mental status grossly normal Speech and movement: Normal speech and movement present Office Procedures EKG Details: Today, read by me, Afib, incomplete RBBB, spetal q wave, rate 92, Qtc 472ms [id number], Complete Assessment & Plan Assessment & Plan (1) Syncope: Code(s): R55 - Syncope and collapse Category: Medical Plan: Reports of 3 episodes that sound like syncope without warning. Last episode occurred February 2024. EKG done today shows atrial fibrillation, incomplete right bundle branch block, rate 92. Last echocardiogram 09/19/2022 shows EF 50- 55%, biatrial enlargement, bioprosthetic AVR with gradient 17 mmHg. On exam today she does have a noted heart murmur. Her blood pressure and heart rate are elevated. We did check with her pharmacy and she has not filled metoprolol since October 2023. Will send refill for her metoprolol. Will echocardiogram to assess EF, wall motion and valve function. Will check Holter monitor to assess for AFib rate control and arrhythmia. Her episodes sound like they could be arrhythmia. instructed on maintaining good hydration and sit/lay down if she becomes lightheaded. Cardiology follow-up 4-6 weeks, sooner if needed (2) Persistent atrial fibrillation: Comment: Status post left atrial appendage removal during surgery. Code(s): I48.19 - Other persistent atrial fibrillation Category: Medical Plan: history of persistent atrial fibrillation. She had left atrial appendage removal during her aortic valve and root surgery. She is not on anticoagulation with the exception of aspirin. She tells me she takes aspirin only periodically. She is supposed to be on metoprolol for heart rate control however pharmacy states she has not picked up a bottle since October 2023. Will restart metoprolol and checking Holter monitor. (3) Essential hypertension: Code(s): I10 - Essential (primary) hypertension Category: Medical Plan: Elevated today. Will restart metoprolol. Continue amlodipine. (4) Cardiomyopathy: Code(s): I42.9 - Cardiomyopathy, unspecified Category: Medical Plan: Last echo showed mildly reduced EF 50-55%. She does not appear fluid overloaded on exam. Rechecking echocardiogram. (5) Status post ascending aortic replacement: Comment: #28 Hemashield graft 2018. Code(s): Z95.828 - Presence of other vascular implants and grafts Category: Surgical Plan: As above (6) Status post aortic valve replacement with bioprosthetic valve: Comment: 23 mm Batsheva- Sanchez Magna valve; 2018; preoperative cardiac catheterization with minimal luminal irregularities and mild RCA disease. Code(s): Z95.3 - Presence of xenogenic heart valve Category: Surgical Plan: as above Plan time spent on chart review, documentation, interview and assessment Orders: Orders ECG 3 day holter monitor Today I48.19 - Other persistent atrial fibrillation, R55 - Syncope and collapse CA echo transthoracic complete Today Z95.828 - Presence of other vascular implants and grafts Coding Level of Care Code Est Pt Level 4 (86092) Complex EM visit Add On G2211 Diagnoses Syncope R55 Persistent atrial fibrillation I48.19 Essential hypertension I10 Cardiomyopathy I42.9 Status post ascending aortic replacement Z95.828 Status post aortic valve replacement with bioprosthetic valve Z95.3 CPT Codes EKG - CPT: 31360-[id number], Complete ([id number]) Time Spent (min) 34
[2024-06-21 10:31] VITALS: BP 138/99; PULSE 102; BMI 20.2
[2024-06-21 10:43] VITALS: BP 178/85; PULSE 110
== END 2024-06-21 11:19 | disposition home or self-care (01) ==
PROVIDERS: PCP Internal Medicine; Visit Provider Nurse Practitioner Family
DX: R55 Syncope and collapse (principal); I48.19 Other persistent atrial fibrillation; I10 Essential (primary) hypertension; I42.9 Cardiomyopathy, unspecified; Z95.828 Presence of other vascular implants and grafts; Z95.3 Presence of xenogenic heart valve
CPT/HCPCS: 93010; 99214; G2211

== ENCOUNTER → 2024-06-21 10:07 | Outpatient (BNVA) | payer MEDICARE, SELFPAY | PROVIDERS: PCP Internal Medicine; Visit Provider Nurse Practitioner Family | DX: I48.19 Other persistent atrial fibrillation (principal); I10 Essential (primary) hypertension; R55 Syncope and collapse; I42.9 Cardiomyopathy, unspecified; Z95.3 Presence of xenogenic heart valve; Z91.81 History of falling; Z95.828 Presence of other vascular implants and grafts | CPT/HCPCS: 93005; 99212 ==

== ENCOUNTER → 2024-06-28 11:12 | Outpatient (REF) | payer MEDICARE, SELFPAY | LOC: HO.CARD 11:12 | PROVIDERS: PCP Internal Medicine; Visit Provider Nurse Practitioner Family | DX: I48.19 Other persistent atrial fibrillation (principal); R55 Syncope and collapse | CPT/HCPCS: 93242 ==

== ENCOUNTER → 2024-06-28 11:15 | Outpatient (BNV) | payer MEDICARE, SELFPAY | PROVIDERS: PCP Internal Medicine; Visit Provider Internal Medicine Cardiovascular Disease | DX: I48.91 Unspecified atrial fibrillation (principal) | CPT/HCPCS: 93244 ==

== ENCOUNTER → 2024-07-13 12:38 | Outpatient (REF) | payer MEDICARE, SELFPAY ==
--- NOTE | 2024-07-13 12:41 | CA_ITS ---
Transthoracic Echocardiogram Patient (Last, First, Middle): Sunita Lux, Gender: Female Date of : 1940 Age: 83 Procedure Date: 07/13/2024 Procedure Type: Transthoracic Echocardiogram Location: OP Height: 167.64 cm Weight: 61.24 kg BSA: 1.69 m2 Heart Rate: bpm BP: 180 / 92 mmHg Customer Success Intern: TO Referring MD: Lorie Archer CANVAS WORKERPk Symptoms: Z95.828 - Presence of other vascular implants and grafts Study Quality: Adequate ECG Rhythm: Atrial Fibrillation Conclusions: - The left ventricular systolic function is low normal. The calculated ejection fraction is 53% by biplane method. - A bioprosthetic aortic valve is present. The prosthetic aortic valve appears to be functioning normally. Findings Left Ventricle Normal left ventricular cavity size. There is normal left ventricular wall thickness. The left ventricular systolic function is low normal. The calculated ejection fraction is 53% by biplane method. There is no evidence of regional wall motion abnormalities. Diastolic function is indeterminate on the basis of available data. Right Ventricle Normal right ventricular cavity size. There is moderately decreased right ventricular systolic function. Atria Severe biatrial enlargement. Aortic Valve A bioprosthetic aortic valve is present. The prosthetic aortic valve appears to be functioning normally. The mean gradient is 15 mmHg. No significant regurgitation. Mitral Valve The mitral valve appears normal. There is trace mitral valve regurgitation. There is no mitral valve stenosis. Pulmonic Valve There is trace pulmonic valve regurgitation. Tricuspid Valve There is moderate tricuspid valve regurgitation. Mild pulmonary hypertension is present. Great Vessels The asc aorta is normal in size. Venous The inferior vena cava is mildly dilated and collapses greater than 50% with inspiration. Pericardium/Pleural There is no evidence of pericardial effusion. Prior Study Comparison No significant change compared to prior study dated: 09/19/2022. Measurements 2D Linear Measurements IVSd: 0.93 0.6-0.9/0.6-1.0 cm LVIDd: 4.17 3.9-5.3/4.2-5.9 cm LVIDd Index: 2.47 2.4-3.2/2.2-3.1 cm/m2 LVIDs: 2.82 2.0-3.6 cm LVPWd: 0.71 0.7-1.1 cm LV Mass: 128.87 67-162/88-224 g LV Mass Index: 76.26 43-95/49-115 g/m2 LVOT Diam: 2.20 3.0+(-)1.3 cm 2D Systolic Function EF 4C: 52.70 >55% EF 2C: 51.70 >55% EF BiP: 52.50 >55% Mitral Valve MV Pk E: 0.74 MV Decel Time: 203.00 E'Lateral: 7.72 E'Medial: 6.20 E/E' Med: 11.90 E/E' Lat: 9.60 PHT: 59.00 MVA PHT: 3.73 Decel [place]: 3.78 Aortic Valve AoV Pk Gal[place]: 2.54 AoV Mn Galdino: 1.83 AoV VTI: 0.57 AoV Pk Grad: 26.00 Aov Mn Grad: 15.00 DANIELLE Cont.VTI: 0.92 LVOT LVOT Pk Gal[place]: 0.63 LVOT Mn [place]: 0.45 LVOT VTI: 0.14 LVOT Pk Grad: 2.00 LVOT Mn Grad: 1.00 LVOT Diam: 2.20 LVOT Area: 3.80 Diastolic Function MV Pk E: 0.74 E'Medial: 6.20 E/E' Med: 11.90 E' Laterial: 7.72 E/E' Lat: 9.60 Right Ventricle TAPSE (mm): 13.00 TVS' Gal[place]: 7.83 Tricuspid Valve TR Pk Galdino: 2.62 TR Pk Grad: 27.00 RA Press: 8.00 RVSP: 35.00 Great Vessels Aorta Sinus of Valsalva: 3.83 2.0-3.[address] [place]: 2.58 1.7-3.4 cm Ao Asc: 3.00 2.1-3.4 cm Updated in Other Vendor System with Status of Final Aldo Conde MD electronically signed on 07/14/2024 10:27:36 AM with status of Final
== END ==
LOC: HO.CARD 12:38
PROVIDERS: Visit Provider Nurse Practitioner Family
DX: Z95.828 Presence of other vascular implants and grafts (principal)
CPT/HCPCS: 93306

== ENCOUNTER → 2024-07-13 12:41 | Outpatient (BNV) | payer MEDICARE, SELFPAY | PROVIDERS: Visit Provider Internal Medicine | DX: I27.20 Pulmonary hypertension, unspecified (principal); I36.1 Nonrheumatic tricuspid (valve) insufficiency; Z95.3 Presence of xenogenic heart valve | CPT/HCPCS: 93306 ==

== ENCOUNTER 2024-08-02 11:32 | Emergency (ER) | payer MEDICARE, SELFPAY ==
--- NOTE | ~2024-08-02 | CT_ITS ---
EXAMINATION: CT CERVICAL SPINE WITHOUT CONTRAST CLINICAL INFORMATION: Injury. COMPARISON: None available. TECHNIQUE: Contiguous axial images through the cervical spine using 3 mm collimation with bone and soft tissue algorithm. Sagittal and coronal reformatted images acquired with bone algorithm. DLP: 206.[address] examination was performed using dose optimization techniques as appropriate, variously including the following: *Automated exposure control *Adjustment of mA and/or kV according to patient size (this includes techniques or standardized protocols for targeted exams where dose is matched to indication/reason for exam; i.e. extremities or head) *Use of iterative reconstruction technique FINDINGS: Craniocervical junction is intact with normal alignment. C1 is intact. C2 is intact. Left-sided facet joint hypertrophy. C3 is intact. Left-sided facet joint hypertrophy. C4 is intact. Left facet joint hypertrophy. C5 is intact. C6 is intact. C7 is intact. No prevertebral compartment hematoma. Marginal osteophyte formation and subchondral cyst formation and endplate sclerosis and decreased intervertebral disc height at C3-4. Osteopenia versus osteoporosis. No gross malalignment between the vertebral bodies or the facet joints. Calcified plaques in the carotic arteries. Retropharyngeal trajectory, right carotid artery. Bilateral apical lung scarring Tympanic cavities and mastoid cells are aerated. Pneumatized right petrous apex. CT/CT cervical spine wo IV con IMPRESSION: Multilevel cervical spondylosis more pronounced at C3-4 without acute fracture or gross trauma-related listhesis. Fleischner guidelines were followed. Electronically signed by: Ross Alfaro MD 08/02/2024 12:32 PM EDT
--- NOTE | ~2024-08-02 | CT_ITS ---
EXAMINATION: CT HEAD WITHOUT CONTRAST CLINICAL INFORMATION: trauma COMPARISON: None available. TECHNIQUE: Contiguous axial imaging was performed from the skull base to vertex without intravenous administration of contrast. This CT examination was performed using dose optimization techniques as appropriate, variously including the following: *Automated exposure control *Adjustment of mA and/or kV according to patient size (this includes techniques or standardized protocols for targeted exams where dose is matched to indication/reason for exam; i.e. extremities or head) *Use of iterative reconstruction technique DLP: 570 mGy-cm FINDINGS: The bony calvarium is intact. The skull base is intact. No acute intracranial hemorrhage, mass effect, midline shift, hydrocephalus or herniation. De [place] Torre-white matter differentiation is normal. Bilateral multifocal patchy and confluent deep periventricular white matter hypodensities involving centrum semiovale and aguillon radiata. Focal old lacunar infarcts, cerebellum, basal ganglia and aguillon radiata. Calcified plaques in the cavernous supracavernous segments both ICAs. Sellar/suprasellar region demonstrated no gross masses. Craniocervical junction demonstrates normal position of the cerebellar tonsils. 5 mm enostosis in the right temporal bone convexity. No air-fluid levels in the paranasal sinuses. Tympanic cavities and mastoid cells are aerated. 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 CT/CT head/brain wo IV con IMPRESSION: No acute fracture, bony calvarium. No acute intracranial hemorrhage. 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 Electronically signed by: Ross Alfaro MD 08/02/2024 12:39 PM EDT
--- NOTE | ~2024-08-02 | XR_ITS ---
EXAMINATION: XR PELVIS CLINICAL INFORMATION: pain COMPARISON: Left hip radiographs 12/08/2018. TECHNIQUE: AP view of the pelvis. FINDINGS: No fracture, dislocation, or suspicious bone lesion. Mild diffuse osteopenia. Hip joints appear aligned and normal in appearance. Mild degenerative changes in the SI joints bilaterally. Mild degenerative changes in the lower lumbar spine. Large popcorn type calcification in the central pelvis is consistent with a degenerated uterine fibroid. Small calcification overlying the left sacral ala is unchanged from 2019. Soft tissues are otherwise normal in appearance. XR/XR pelvis 1-2V IMPRESSION: No acute findings of the pelvis. Electronically signed by: Johnny Henry MD 08/02/2024 12:17 PM EDT
[2024-08-02 11:53] VITALS: BP 168/91; PULSE 118; RESP 16; TEMP 36.3; O2SAT 96; BMI 19.0
--- NOTE | 2024-08-02 11:56 | ECG_ITS ---
Test Reason : pain Blood Pressure : */* mmHG Vent. Rate : 91 BPM Atrial Rate : * BPM P-R Int : * ms QRS Dur : 90 ms QT Int : 368 ms P-R-T Axes : * -28 17 degrees QTcB Int : 452 ms Atrial fibrillation Cannot rule out Anteroseptal infarct (cited on or before 16-Apr-2017) Abnormal ECG When compared with ECG of 09-Sep-2017 09:58, Atrial fibrillation has replaced Sinus rhythm Vent. rate has increased by 46 bpm Questionable change in initial forces of Anterior leads Nonspecific T wave abnormality, improved in Lateral leads Referred By: Eldon Lopez Electronically Signed By: JUSTICE BRANDON MD
--- NOTE | 2024-08-02 11:56 | ED.GENADULT ---
HPI - General Adult General Chief complaint: Fall Stated complaint: Fall - hit head Time Seen by Provider: 08/02/24 13:18 Source: patient Mode of arrival: ambulatory Limitations: no limitations History of Present Illness ED Provider: Glen Viveros PA-C HPI narrative: 83 yo female with history of persistent afib not on anticoagulation, hx severe aortic stenosis s/p bioprosthetic AV replacement, history of ascending aortic graft placement, HTN who presents to the ER for evaluation after a fall yesterday. Endorses +headstrike however denies any LOC, headache, vision changes, N/V, or lethargy. Denies any numbness or tingling, or any other neurological symptoms. Indicates she was walking with a cane while carrying a bucket outside and tripped and fell onto her bottom/back. Denies any precipitating symptoms, no pre-syncope, no dizziness, lightheadedness, denies palpitations, SOB or CP. MD complaint: fall, low back pain Onset (ago): day(s) Location: head and back Radiation: non-radiation Severity: moderate Relieving factors: rest Exacerbating factors: movement Associated symptoms: denies other symptoms Treatments prior to arrival: none Related Data Home Medications ?Medication ?Instructions ?Recorded ?Confirmed aspirin 81 mg chewable tablet 81 mg PO DAILY 10/30/22 06/21/24 (Alfonso Chewable Low Dose Aspirin) Previous Rx's ?Medication ?Instructions ?Recorded amlodipine 10 mg tablet 10 mg PO DAILY #90 tabs 05/28/23 metoprolol succinate 50 mg 50 mg PO BID #180 tabs 06/21/24 tablet,extended release 24 hr lidocaine 5 % topical patch 1 patch topical DAILY PRN pain #15 08/02/24 (Lidoderm) ea Allergies Allergy/AdvReac Type Severity Reaction Status Date / Time penicillin V Allergy Unknown unk Verified 08/02/24 11:55 Review of Systems Review of Systems: Yes all other systems are reviewed and are negative PMFSH Past Medical History Medical History History of bicuspid aortic valve Persistent atrial fibrillation Surgical History Status post ascending aortic replacement Status post aortic valve replacement with bioprosthetic valve History of cardiac catheterization (~03/2017) History of transesophageal echocardiography (EDA) (~03/2017) History of aortic valve replacement with bioprosthetic valve (~03/2017) Family History Family History Father No problems noted. Mother No problems noted. Social History Social History Patient Tobacco Use Status: Never used Tobacco Smoked in Last 30 Days: No Use of substances other than those prescribed or required for medical reasons: No Advance Directives: No Advance Directives Information Provided: Yes Do you have a plan to hurt others: No Plan Physical Exam ED Vital Signs: Vital Signs - 24 hr 08/02/24 11:53 08/02/24 13:54 08/02/24 13:54 Temperature 97.3 F Pulse Rate 118 H 89 89 Respiratory Rate 16 16 16 Blood Pressure 168/91 H 159/93 H 159/93 H Pulse Oximetry 96 97 Oxygen Delivery Method Room Air Room Air 08/02/24 15:28 Temperature 0 F L Pulse Rate 89 Respiratory Rate 16 Blood Pressure 159/93 H Pulse Oximetry 97 Oxygen Delivery Method Room Air BMI result Body Mass Index 19.0 Appearance: Alert. Oriented X3. No acute distress. Head: normocephalic, atraumatic. Eyes: Pupils equal, round and reactive to light. ENT: Pharynx normal. No tonsillar swelling or exudate. Neck: Normal inspection. Neck supple. CVS: irregularly irregular, rate 90s. Pulses normal. Respiratory: No respiratory distress. Breath sounds normal. Abdomen: Soft and nontender. +BS x4 Back: normal inspection, mild tenderness of the lower lumbar area, no ecchymosis Skin: Skin warm and dry. Normal skin color. Normal skin turgor. No rashes. Extremities: No lower extremity edema. No joint swelling. Neuro/psych: Oriented X 3. No motor deficit. No sensory deficit. CN II-XII intact. Normal speech and cognition. steady gait with walker Course Course Course Narrative: RME, this is a rapid medical exam performed by Robert Lopez please refer to primary provider for complete H&P- 83-year-old female with history of atrial fibrillation not currently anticoagulated, high blood pressure presents for evaluation of a fall that happened yesterday. She is not sure why she fell but complains of sacral pain. She did not her head. Plan for CT scan of the brain, cervical spine, x-ray of the pelvis as the patient has been ambulatory less likely hip fracture. EKG, labs, urinalysis will be ordered Medications Administered Discontinued Medications Generic Name Dose Route Start Last Admin Trade Name Hieu PRN Reason Stop Dose Admin Acetaminophen 975 mg 08/02/24 14:34 08/02/24 14:44 Acetaminophen 325 Mg Tablet PO 08/02/24 14:35 325 mg ONCE ONE Administration Lidocaine 1 patch 08/02/24 14:33 08/02/24 14:44 Lidocaine 4 % Patch Adh..Patch TRANSDERMA 08/02/24 14:34 1 patch ONCE ONE Administration Protocol Medical Decision Making Medical Decision Making [facility] Narrative: 83 yo female with history of persistent afib not on anticoagulation, hx severe aortic stenosis s/p bioprosthetic AV replacement, history of ascending aortic graft placement, HTN who presents to the ER for evaluation after a fall yesterday. Denies any precipitating symptoms, no pre-syncope, no dizziness, lightheadedness, denies palpitations, SOB or CP. No red flag symptoms for the back pain, bowel and bladder functioning. Does have cardiac arrhythmia history, which is chronic and asymptomatic, there is a low suspicion of cardiac etiology for fall. EKG with rate controlled AFib. Blood pressure is stable. CT of her head without acute findings. x-ray of her pelvis without acute fracture. She is ambulating with a steady gait. She has mild low back pain which improved with Tylenol and Lidoderm patch. Her lab workup and urinalysis are unremarkable. She would like to go home. She has the family member who is comfortable taking her home. She declines need for short-term rehab for physical therapy evaluation. Comfortable discharge home, she is ambulating with a very steady gait using her rolling walker. Encouraged follow-up with PCP. Differential Diagnosis Differential Diagnoses: The differential diagnosis associated with the presentation includes mechanical fall, syncope, orthostatic hypotension, cardiac arrythmia, CVA, Sacral fracture, coccyx fracture, hip fracture Admission/Observation Consideration of admission/observation: Escalation of care including admission/observation considered Lab Data [facility] Lab Attestation statement: I reviewed the patient's lab results. mild anemia and thrombocytopenia, no major metabolic derangement 08/02/24 12:54 08/02/24 12:54 Labs: Lab Results 08/02/24 08/02/24 Range/Units 12:54 14:46 WBC 6.7 (4.8-10.8) X10*3/uL RBC 4.49 (4.20-5.50) X10*6/uL Hgb 12.5 (12.0-16.0) g/dl Hct 38.5 (37.0-47.0) % MCV 85.7 (80.0-98.0) fL MCH 27.8 (27.0-33.0) pg MCHC 32.5 (31.0-35.0) g/dl RDW 14.2 (11.0-16.0) % Plt Count 106 L (160-400) X10*3/uL MPV 9.7 (9.4-12.3) fL Immature Gran % (Auto) 0.1 (0.0-0.4) % Neut % (Auto) 71.1 (45-73) % Lymph % (Auto) 19.4 L (20-40) % Richardson % (Auto) 7.3 (2-11) % Eos % (Auto) 1.5 (0-4) % Baso % (Auto) 0.6 (0-2) % Lymph # (Auto) 1.3 (1.2-4.9) X10*3/uL Richardson # (Auto) 0.5 (0.1-1.2) X10*3/uL Eos # (Auto) 0.1 (0.0-0.4) X10*3/uL Baso # (Auto) 0.0 (0.0-0.2) X10*3/uL Abs Immat Gran (auto) 0.01 (0.00-0.03) X10*3/uL Absolute Neuts (auto) 4.8 (2.0-8.3) x10*3/uL Absolute Nucleated RBC 0.000 (0.0-0.012) X10*3/uL Nucleated RBC % (auto) 0.0 (0.0-0.2) /100WBC Smear Tech's Comments VERIFIED Sodium 136 (135-145) mmol/L Potassium 4.2 (3.3-5.1) mmol/L Chloride 102 (96-108) mmol/L Carbon Dioxide 22 (22-29) mmol/L Anion Gap 16 (12-20) BUN 14 (9-16) mg/dL Creatinine 0.76 (0.5-1.4) mg/dL Estim Creat Clear Calc 47.9 Estimated GFR > 60 Random Glucose 108 (60-115) mg/dL Calcium 9.4 (8.4-10.2) mg/dL Total Bilirubin 0.7 (0.0-1.0) mg/dL AST 22 (5-31) U/L ALT 7 (0-31) U/L Alkaline Phosphatase 81 (39-117) U/L Troponin I High Sens 9.3 (<3.5-17.0) ng/L Total Protein 8.2 H (6.5-8.0) g/dL Albumin 3.8 (3.5-5.0) g/dL Lipase 21 (8-78) U/L Urine Color Yellow Urine Appearance Clear Urine pH 6.5 (5.0-9.0) Ur Specific [place] <= 1.005 (1.005-1.025) Urine Protein Negative (Neg-Trace) mg/dL Urine Glucose (UA) Negative (Negative) mg/dL Urine Ketones Negative (Negative) mg/dL Urine Blood Negative (Negative) Urine Nitrite Negative (Negative) Ur Leukocyte Esterase Small (1+) H (Negative) Urine RBC 0-2 (0-2) /HPF Urine WBC 0-5 (0-5) /HPF Ur Squamous Epith Cells 0-2 (0-2) /HPF Urine Bacteria None Seen (None Seen) Hyaline Casts 0-2 (0-2) /LPF Independent Interpretation I performed an independent interpretation of an: EKG, Plain X-Ray and CT Scan Interpretation: EKG with atrial fibrillation, ventricular rate 91 beats per minute, saw tooth pattern in V1 may be consistent with atrial flutter, no ST segment elevations or depressions x-ray of the pelvis without any acute fractures appreciated. CT scan of the head without any acute bleed or edema Radiology Impression Discussion of test interpretation with radiology: I have reviewed the radiologist's reading. Independent Historian Clinical information obtained from an independent historian. History obtained from or confirmed by: Friend External Record Review External record reviewed: Outpatient record, Prior outpatient labs and Prior outpatient radiology Prescription Management I considered prescription management with: Pain Medication Chronic Conditions Patient?s care impacted by: Other (afib) Critical Care Time Critical Care Time Critical Care Time: No Discharge Plan Discharge Clinical Impression: Contusion of lower back Qualifiers: Encounter type: initial encounter Qualified Code(s): S30.0XXA - Contusion of lower back and pelvis, initial encounter Patient Disposition: Home, Self-Care Instructions: Fall Prevention for Older Adults (ED), Low Back Strain (ED) Additional Instructions: Your imaging and blood work today was reassuring. Recommend rest, ice, Tylenol and lidocaine patches as needed on your lower back. Is important that you always use your cane or rolling walker to help prevent falls. Follow-up with your doctor as needed. If you develop new or worsening symptoms call 911 or come back to the ER for further evaluation. Prescriptions: New lidocaine [Lidoderm] 5 % adhesive patch,medicated 1 patch topical DAILY PRN (Reason: pain) Qty: 15 0RF Rx Instructions: leave on most painful area for up to 12 hrs No Action aspirin [Alfonso Chewable Aspirin] 81 mg tablet,chewable 81 mg PO DAILY amlodipine 10 mg tablet 10 mg PO DAILY Qty: 90 3RF metoprolol succinate 50 mg tablet extended release 24 hr 50 mg PO BID Qty: 180 3RF Referrals: Shayne Garcia MD [Primary Care Provider] - Interventions: ED Discharge Assessment Last Done: 08/02/24 15:28 Discharge Date/Time: 08/02/24 15:30 Print Language: Other
[2024-08-02 13:03] LABS: Basophils Percent Auto 0.6 % (0-2); Eosinophils Absolute Auto 0.1 X10*3/uL (0.0-0.4); Eosinophils Percent Auto 1.5 % (0-4); Hematocrit 38.5 % (37.0-47.0); Hemoglobin 12.5 g/dl (12.0-16.0); Imm Gran Abs Auto 0.01 X10*3/uL (0.00-0.03); Imm Gran Pct Auto 0.1 % (0.0-0.4); Lymphocytes Absolute Auto 1.3 X10*3/uL (1.2-4.9); Lymphocytes Percent Auto 19.4 % (20-40); MANUAL DIFF FLAG SCAN; Mean Corpuscular HGB Conc 32.5 g/dl (31.0-35.0); Mean Corpuscular Hemoglobin 27.8 pg (27.0-33.0); Mean Corpuscular Volume 85.7 fL (80.0-98.0); Monocytes Absolute Auto 0.5 X10*3/uL (0.1-1.2); Monocytes Percent Auto 7.3 % (2-11); Neutrophils Absolute Auto 4.8 x10*3/uL (2.0-8.3); Neutrophils Percent Auto 71.1 % (45-73); PLT CLUMP 1; Red Blood Count 4.49 X10*6/uL (4.20-5.50); Red Cell Distribution Width 14.2 % (11.0-16.0); SCAN SMEAR FLAG 1
[2024-08-02 13:22] LABS: Alanine Aminotransferase 7 U/L (0-31); Albumin Level 3.8 g/dL (3.5-5.0); Anion Gap 16 (12-20); Aspartate Amino Transferase 22 U/L (5-31); Bilirubin Total 0.7 mg/dL (0.0-1.0); Blood Urea Nitrogen 14 mg/dL (9-16); Calcium 9.4 mg/dL (8.4-10.2); Carbon Dioxide 22 mmol/L (22-29); Chloride 102 mmol/L (96-108); Creatinine Clr Calc Pharmacy 47.9; Estimated Glomerular Filt Rate > 60; Glucose Random 108 mg/dL (60-115); Lipase 21 U/L (8-78); Potassium 4.2 mmol/L (3.3-5.1); Sodium 136 mmol/L (135-145); Total Protein 8.2 g/dL (6.5-8.0)
[2024-08-02 13:24] LABS: Troponin-I High Sensitivity 9.3 ng/L (<3.5-17.0)
[2024-08-02 13:27] LABS: White Blood Count 6.7 X10*3/uL (4.8-10.8)
[2024-08-02 13:28] LABS: Mean Platelet Volume 9.7 fL (9.4-12.3); Platelet Count 106 X10*3/uL (160-400); SLIDE REVIEW VERIFIED
[2024-08-02 13:54] VITALS: BP 159/93; PULSE 89; RESP 16; O2SAT 97
[2024-08-02 14:19] LABS: Alkaline Phosphatase 81 U/L (39-117)
[2024-08-02] MEDS: Lidocaine 4 % Patch ADH..PATCH 1 PATCH TRANSDERMA (14:44)
[2024-08-02] MEDS: Acetaminophen 325 MG TABLET 975 MG PO (14:44)
[2024-08-02 14:54] LABS: Appearance Urine Clear; Color Urine Yellow; Glucose Urine UA Negative (Negative); Leukocyte Esterase Urine Small (1+) (Negative); Nitrite Urine Negative (Negative); PH 6.5 (5.0-9.0); Specific Gravity - Urine <= 1.005 (1.005-1.025); UMIC TRIGGER UACC YES; Urine Blood Negative (Negative); Urine Ketones Negative (Negative); Urine Protein Negative (Neg-Trace)
[2024-08-02 15:04] LABS: Bacteria Urine None Seen (None Seen); Hyaline Casts Urine 0-2 /LPF (0-2); RBC Urine 0-2 /HPF (0-2); Squamous Epithelial Cell Urine 0-2 /HPF (0-2); UACC Culture Trigger YES; WBC Urine 0-5 /HPF (0-5)
[2024-08-02 15:28] VITALS: BP 159/93; PULSE 89; RESP 16; TEMP -17.7; TEMP 0; O2SAT 97
== END 2024-08-02 15:30 | disposition home or self-care (01) ==
PROVIDERS: Physician Assistant; Emergency Provider Emergency Medicine Emergency Medical Services; PCP Internal Medicine
DX: S30.0XXA Contusion of lower back and pelvis, initial encounter (principal); W19.XXXA Unspecified fall, initial encounter; M54.50 Low back pain, unspecified; I48.91 Unspecified atrial fibrillation; I10 Essential (primary) hypertension; R26.89 Other abnormalities of gait and mobility; R53.1 Weakness; Y93.9 Activity, unspecified; Y92.019 Unspecified place in single-family (private) house as the place of occurrence of the external cause; Y99.9 Unspecified external cause status
CPT/HCPCS: 36415; 70450; 72125; 72170; 80053; 81001; 83690; 84484; 85025; 87086; 93005; 99284; 99285

== ENCOUNTER → 2024-08-02 11:56 | Outpatient (BNV) | payer MEDICARE, SELFPAY | PROVIDERS: Emergency Provider Emergency Medicine Emergency Medical Services; PCP Internal Medicine; Visit Provider Internal Medicine Cardiovascular Disease | DX: I48.91 Unspecified atrial fibrillation (principal) | CPT/HCPCS: 93010 ==

== ENCOUNTER → 2024-08-02 11:56 | Outpatient (BNV) | payer MEDICARE, SELFPAY | PROVIDERS: PCP Internal Medicine; Visit Provider Radiology Diagnostic Radiology | DX: M47.812 Spondylosis without myelopathy or radiculopathy, cervical region (principal); R90.82 White matter disease, unspecified; R10.2 Pelvic and perineal pain | CPT/HCPCS: 72170 ==

== ENCOUNTER 2024-08-23 11:04 | Outpatient (AMB) | payer MEDICARE, SELFPAY ==
[2024-08-23 11:04] VITALS: BP 145/77; PULSE 94; RESP 12; TEMP 36.4; O2SAT 96; BMI 19.0
--- NOTE | 2024-08-23 11:04 | MHC.PC.OV ---
Vital Signs 08/23/24 11:04 Height 5 ft 6 in Weight 118 lb BMI 19.0 BP 145/77 H Blood Pressure Location Rt radial Position Sitting Respiration 12 Pulse 94 Pulse Source Pulse Oximeter Temp 97.6 F Temp Source Temporal Artery Scan Pulse Oximetry (%) 96 Oxygen Delivery Method Room Air Intake Visit Reasons: ER FollowUp Cancellation Clerk Required: No Accompanied by: niece Allergies penicillin V Allergy (Unknown, Verified 08/23/24 12:49) unk Medication List - Last Reconciled 08/23/24 by Naida Iyer PA-C amlodipine 10 mg PO DAILY aspirin (Alfonso Chewable Low Dose Aspirin) 81 mg PO DAILY lidocaine 5% (Lidoderm) 1 patch topical DAILY PRN metoprolol succinate ER 50 mg PO BID Tobacco use date assessed: 08/23/24 Fall risk assessment: 2 + Falls in past year Last assessed Fall Risk: 08/23/24 Dental Screening Dental Screen Date: 08/23/24 Did you have a dental visit in the last 12 months?: No Did you have a dental problem in the last 6 months where you did not have access to dental care?: No Was dental information given to patient?: Patient has dentist HPI ER FollowUp HPI Details The patient is an 83-year-old female presenting with an ER discharge follow-up due to a fall. This fall occurred when she tripped while walking in her home and hit her head, back, and bottom. On August 02, she visited the ER, where head and neck imaging revealed multiple old lacunar infarcts but no new injuries. She has a history of atrial fibrillation, treated with Metoprolol and Amlodipine, arthritis, and thyroid dysfunction without current therapy. Blood pressure in the ER was noted at 159/93, and a history of low platelet count and chronic thyroid elevation has been present since 2018 and 2020, respectively. Previous falls have been unexplained, though the patient denies ongoing dizziness or new symptoms, expressing a feeling of reduced mental clarity post-fall. Family concerns include potential impacts of medications on her fall risk. Family at bedside would also like patient's ears to be checked due to they believe that she has cerumen impaction. Family at bedside believes patient can still drive short distances although they mainly drive her. Handicap placard form filled for patient and family member. Family member requesting [facility] and [employer]/home health aide services for medication management, house cleaning, appointments, etc.. Social History - Lives alone and maintains independence with some family support nearby. - Independent in activities of daily living but experiences challenges with tasks like vacuuming. - No reported use of substances or tobacco. - History of driving, though recent falls have limited activities, and family support has mitigated driving responsibilities. [facility] Medical History (Updated 08/23/24 @ 13:47 by Naida Iyer PA-C) Thrombocytopenia Subclinical hypothyroidism Multilevel cervical spondylosis without myelopathy Evaluation of hearing impairment Recurrent falls Multiple lacunar infarcts Pulmonary nodule Establishing care with new doctor, encounter for History of bicuspid aortic valve Persistent atrial fibrillation Surgical History Status post ascending aortic replacement Status post aortic valve replacement with bioprosthetic valve History of cardiac catheterization (~03/2017) History of transesophageal echocardiography (EDA) (~03/2017) History of aortic valve replacement with bioprosthetic valve (~03/2017) Family History Father No problems noted. Mother No problems noted. Social History Housing: House Alcohol intake: current Alcohol intake frequency: does not drink Patient Tobacco Use Status: Never used Tobacco service: No Current occupational status: retired Cognitive needs: Yes (walker) Hearing needs: No Vision needs: No Questionnaire PHQ-9 Over the last 2 weeks, how often have you been bothered by any of the following problems? 1. Little interest or pleasure in doing things: not at all 2. Feeling down, depressed, or hopeless: not at all 3. Trouble falling or staying asleep, or sleeping too much: not at all 4. Feeling tired or having little energy: not at all 5. Poor appetite or overeating: not at all 6. Feeling bad about yourself - or that you are a failure or have let yourself or your family down: not at all 7. Trouble concentrating on things, such as reading the newspaper or watching television: not at all 8. Moving or speaking so slowly that other people could have noticed. Or the opposite - being so fidgety or restless that you have been moving around a lot more than usual: not at all 9. Thoughts that you would be better off or of hurting yourself in some way: not at all Total score: 0 Depression Screening Interpretation: Negative Depression Screening Done: Yes 40403 - PHQ-9 Billing: Yes Source: Developed by Drs. Miko Bland, Geovanna Davidson, Kevin Gillespie and colleagues, with an educational marie from [employer]. Thrive Questionnaire Date Thrive assessed: 08/23/24 I am a: Patient What is your living situation today?: I have a steady place to live Within the past 12 months, did the food you bought not last and you didn't have the money to get more?: Never true Within the past 12 months, did you worry whether your food would run out before you got money to buy more?: Never true Do you have trouble paying for medicines?: No Do you have trouble getting transportation to medical appointments?: No Do you have trouble paying your heating and electricity bill?: No Do you have trouble taking care of your child, family member or friend?: No Do you have trouble with day-to-day activities such as bathing, preparing meals, shopping, managing finances, etc.?: No Are you currently unemployed and looking for a job?: No Are you interested in more education?: No Please select the resources that you would like help with: None THRIVE Score: 0 AUDIT C Alcohol Use Questionnaire (AUDIT-C) 1. How often do you have a drink containing alcohol?: Never 3. How often do you have six or more drinks on one occasion?: Never Total Score: 0 Score Reviewed/Action Taken: No JESSY-7 AMB Questionnaire JESSY-7 Date JESSY - 7 assessed: 08/23/24 Feeling nervous, anxious, or on edge: 0 = Not at all Not being able to stop or control worryin = Not at all Worrying too much about different things: 0 = Not at all Trouble relaxin = Not at all Being so restless that it is hard to sit still: 0 = Not at all Becoming easily annoyed or irritable: 0 = Not at all Feeling afraid as if something awful might happen: 0 = Not at all Total JESSY-7 score (0-4 normal; 5-9 mild; 10-14 moderate; 15-21 severe): 0 Source: Developed by Drs. Miko Bland, Geovanna Davidson, Kevin Gillespie and colleagues, with an educational marie from [employer]. JESSY-7 Assessment Billing JESSY-7 Assessment Tool: JESSY-7 Assessment 95292 Review of Systems Const Details: - Neurologic: Denies dizziness or weakness, reports feeling less clear-minded. - Musculoskeletal: Reports previous falls, concerns about arthritis. - Cardiovascular: Denies shortness of breath on exertion. - Hearing: Reports hearing issues, likely due to ear wax buildup. - No recent urinary symptoms reported. Physical exam (Primary Care) Vital Signs: Last Vital Signs Temp 97.6 F 08/23/24 11:04 Pulse 94 08/23/24 11:04 Resp 12 08/23/24 11:04 BP 162/89 H 08/23/24 11:04 Pulse Ox 96 08/23/24 11:04 Oxygen Delivery Method Room Air 08/23/24 11:04 Care Plan Goal for BP management: <140/90 at Goal BMI result Body Mass Index 19.0 BMI Assessment/Plan discussion: High BMI High, discussed plan: lifestyle, weight reduction, dietary, physical activity and alcohol moderation Tobacco/Smoking Status: Tobacco use Status Tobacco use date assessed 08/23/24 08/23/24 11:07 Patient Tobacco Use Status Never used Tobacco 08/23/24 11:07 PHQ-9: PHQ-9 Score PHQ-9: Total score 0 08/23/24 11:24 Depression Screening Interpretation: Negative Thrive Assessment: Date of Thrive Assessment Date Thrive assessed 08/23/24 08/23/24 11:07 Const Other: Appearance: Alert. Oriented X3. No acute distress. Head: Normal external exam. Normocephalic. Atraumatic. Eyes: Pupils are equal, round, and reactive to light. Extraocular movements intact. Conjunctiva and sclera normal. Eyelids normal. Ears: Cerumen impaction b/l. Mastoid within normal limits. Throat: Pharynx normal. Uvula midline. Moist mucous membranes. Neck: Normal inspection. Neck supple. Full range of motion. No adenopathy. Thyroid normal. No meningeal signs. No neck mass noted. Cardiovascular: Normal heart rate and rhythm. Heart sound normal. No murmurs noted. Pulses normal throughout. Respiratory: No respiratory distress. Painless inspiration. Breath sounds normal. No wheezes/rales/rhonchi noted. Chest nontender. No accessory muscle usage noted or decreased air movement noted. Abdomen: Soft and nontender. Bowel sounds normal in all 4 quadrants. No distention noted. No organomegaly noted. No visible injury noted. Back: No costovertebral angle tenderness. Full range of motion noted. Skin: Skin warm and dry. Normal skin color. Normal skin turgor. No rashes/lesions/lacerations noted. Extremities: No lower extremity edema. Extremities exhibit normal range of motion. Extremities nontender. Neuro: Oriented X 3. No motor deficit. No sensory deficit. Reflexes normal. Multiple old lacunar infarcts noted. No new dizziness or falls reported. Walking with a walker. No focal deficits are noted. Patient is at baseline. Office Procedures Cerumen Removal From which ear canal was the cerumen removed: bilateral Removal: irrigation and cerumen loop/spoon Notes: patient tolerated procedure well, no complications and ear canal clear [id number]-[id number] Irrigation/Lavage Results Reviewed Results Reviewed: - Tests and Diagnostics: - Imaging: CAT scan of the brain showed multiple old lacunar infarcts. - Lab: Platelet count chronically low since 2019. - Thyroid function: Chronic elevation noted but untreated. Coding Level of Care Code New Pt Level 4 (19424) Complex EM visit Add On G2211 Diagnoses Establishing care with new doctor, encounter for Z76.89 Persistent atrial fibrillation I48.19 Status post aortic valve replacement with bioprosthetic valve Z95.3 Status post ascending aortic replacement Z95.828 Cardiomyopathy I42.9 Essential hypertension I10 Multiple lacunar infarcts I63.81 Recurrent falls R29.6 Evaluation of hearing impairment Z01.10 Multilevel cervical spondylosis without myelopathy M47.812 Subclinical hypothyroidism E03.8 Thrombocytopenia D69.6 CPT Codes Office Procedure - CPT: 40248-Ebs Irrigation/Lavage ([id number]) Additional Codes PHQ-9 - 59042 - PHQ-9 Billing: Yes ([id number]) JESSY-7 Assessment Billing - JESSY-7 Assessment Tool: JESSY-7 Assessment 05780 ([id number]) Time Spent (min) 60 Assessment & Plan Assessment & Plan (1) Establishing care with new doctor, encounter for: Code(s): Z76.89 - Persons encountering health services in other specified circumstances Category: Medical (2) Persistent atrial fibrillation: Comment: Status post left atrial appendage removal during surgery. Code(s): I48.19 - Other persistent atrial fibrillation Category: Medical Plan: Atrial fibrillation management with heart rate control; treatment with Metoprolol and Amlodipine continues. Patient to continue aspirin. Condition is chronic and stable continue to monitor. (3) Status post aortic valve replacement with bioprosthetic valve: Comment: 23 mm Batsheva- Sanchez Magna valve; 2018; preoperative cardiac catheterization with minimal luminal irregularities and mild RCA disease. Code(s): Z95.3 - Presence of xenogenic heart valve Category: Surgical Plan: Atrial fibrillation management with heart rate control; treatment with Metoprolol and Amlodipine continues. Patient to continue aspirin. Condition is chronic and stable continue to monitor. (4) Status post ascending aortic replacement: Comment: #28 Hemashield graft 2018. Code(s): Z95.828 - Presence of other vascular implants and grafts Category: Surgical Plan: Atrial fibrillation management with heart rate control; treatment with Metoprolol and Amlodipine continues. Patient to continue aspirin. Condition is chronic and stable continue to monitor. (5) Cardiomyopathy: Code(s): I42.9 - Cardiomyopathy, unspecified Category: Medical Plan: Atrial fibrillation management with heart rate control; treatment with Metoprolol and Amlodipine continues. Patient to continue aspirin. Condition is chronic and stable continue to monitor. (6) Essential hypertension: Code(s): I10 - Essential (primary) hypertension Category: Medical Plan: Patient to continue amlodipine 10 mg daily, aspirin 81 mg daily and metoprolol extended release 50 mg p.o. b.i.d.. Condition is chronic and stable continue to monitor. (7) Multiple lacunar infarcts: Code(s): I63.81 - Other cerebral infarction due to occlusion or stenosis of small artery Category: Medical Plan: Patient denies any new focal deficits, dizziness, weakness, paresthesias or any other symptoms complaints or concerns at this time. Normal neuro exam. Condition is chronic and stable continue to monitor. (8) Recurrent falls: Code(s): R29.6 - Repeated falls Category: Medical Plan: Patient utilizing walker. Denies any recent falls since her last fall in June 2024. Condition is stable will continue to monitor. (9) Evaluation of hearing impairment: Code(s): Z01.10 - Encounter for examination of ears and hearing without abnormal findings Category: Medical Plan: Referral for audiological evaluation. Patient will be given hearing referral. Condition is chronic and stable will continue to monitor. 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 Condition is chronic and stable will continue to monitor. (11) Subclinical hypothyroidism: Code(s): E03.8 - Other specified hypothyroidism Category: Medical Plan: Plan to reassess thyroid function with tests and consider starting treatment upon confirmation of chronic elevation. Condition is chronic and stable will continue to monitor. (12) Thrombocytopenia: Code(s): D69.6 - Thrombocytopenia, unspecified Category: Medical Plan: Continued monitoring through CBC; warnings of abnormal findings will prompt follow-up action. Condition is chronic and stable will continue to monitor. Plan Plan Patient was informed and verbally consented to the use of an ambient scribe for clinic note documentation during this visit. 1. Fall The fall management plan included physical therapy for gait assessment, and fall risk evaluation with consideration for home health support services. 2. Multiple Old Lacunar Infarcts Monitoring the patient?s neurological status is critical; preventive stroke education provided. 3. Atrial Fibrillation Atrial fibrillation management with heart rate control; treatment with Metoprolol and Amlodipine continues. 4. Hypertension Blood pressure to be monitored to ensure current medication efficacy. 5. Arthritis Management with potential inclusion of physical therapy to prevent impact on falls. 6. Thyroid Dysfunction Plan to reassess thyroid function with tests and consider starting treatment upon confirmation of chronic elevation. 7. Low Platelet Count Continued monitoring through CBC; warnings of abnormal findings will prompt follow-up action. 8. Hearing Impairment Referral for audiological evaluation at [facility]. In this consultation, we managed the patient?s recent fall which fortunately resulted in no acute injuries. The post-fall imaging highlighted multiple old lacunar infarcts with further mention of transient ischemic attacks as a potential past event, but no new strokes were present. A plan was established for her physical therapy focusing on fall risk mitigation. This also included home health aid discussions for support in daily activities. Management of atrial fibrillation continues with Metoprolol and Amlodipine, and oral options were reviewed to ensure no hypotensive side effects as a potential fall risk. We will also conduct a repeat thyroid function test due to chronic unexplored thyrotoxicosis and low platelet count since 2019, and hearing has been prioritized with audiological referral. Provisions for future follow-ups with additional lab work to monitor various aspects like CBC, CMP, and thyroid levels were discussed to maintain chronic conditions under control. Orders: Orders Comprehensive [place]. Panel Fast Today Z00.00 - Encounter for general adult medical examination without abnormal findings Magnesium Today Z00.00 - Encounter for general adult medical examination without abnormal findings Vitamin B12 and Folate Today Z00.00 - Encounter for general adult medical examination without abnormal findings Vitamin D 25-OH Total Today Z00.00 - Encounter for general adult medical examination without abnormal findings Creatine Kinase Total Today Z00.00 - Encounter for general adult medical examination without abnormal findings PT Evaluation and Treatment Today I10 - Essential (primary) hypertension, I48.19 - Other persistent atrial fibrillation, I63.81 - Other cerebral infarction due to occlusion or stenosis of small artery, R29.6 - Repeated falls Complete Blood Count Auto Diff Today Z00.00 - Encounter for general adult medical examination without abnormal findings Liver Panel Today Z00.00 - Encounter for general adult medical examination without abnormal findings Lipid Panel Today Z00.00 - Encounter for general adult medical examination without abnormal findings Hemoglobin A1c Today Z00.00 - Encounter for general adult medical examination without abnormal findings C Reactive Protein Today Z00.00 - Encounter for general adult medical examination without abnormal findings TSH reflex Free T4 Today Z00.00 - Encounter for general adult medical examination without abnormal findings Referrals [facility] Referral I63.81 - Other cerebral infarction due to occlusion or stenosis of small artery, R29.6 - Repeated falls Speech and Hearing Referral Z01.10 - Encounter for examination of ears and hearing without abnormal findings Patient Instructions: - Follow up with physical therapy for a fall risk assessment. - Schedule a hearing evaluation at [facility]. - Monitor blood pressure regularly at home. - Plan for blood draw for CBC, thyroid panel, and other labs as discussed. - Avoid driving until further evaluation of fall risk is complete. - Discuss home assistance for daily activities to prevent future falls. - Contact healthcare provider if new symptoms like dizziness appear.
== END 2024-08-23 12:41 | disposition home or self-care (01) ==
LOC: HO.HMCSH 11:04
PROVIDERS: PCP Internal Medicine; Visit Provider Physician Assistant Medical
DX: Z76.89 Persons encountering health services in other specified circumstances (principal); I48.19 Other persistent atrial fibrillation; Z95.3 Presence of xenogenic heart valve; Z95.828 Presence of other vascular implants and grafts; I42.9 Cardiomyopathy, unspecified; I10 Essential (primary) hypertension; I63.81 Other cerebral infarction due to occlusion or stenosis of small artery; R29.6 Repeated falls; Z01.10 Encounter for examination of ears and hearing without abnormal findings; M47.812 Spondylosis without myelopathy or radiculopathy, cervical region; E03.8 Other specified hypothyroidism; D69.6 Thrombocytopenia, unspecified; H61.23 Impacted cerumen, bilateral

== ENCOUNTER → 2024-08-23 11:04 | Outpatient (BNVA) | payer MEDICARE, SELFPAY | PROVIDERS: PCP Internal Medicine; Visit Provider Physician Assistant Medical | DX: I48.19 Other persistent atrial fibrillation (principal); I42.9 Cardiomyopathy, unspecified; I10 Essential (primary) hypertension; I63.81 Other cerebral infarction due to occlusion or stenosis of small artery; H61.23 Impacted cerumen, bilateral; R29.6 Repeated falls; M47.812 Spondylosis without myelopathy or radiculopathy, cervical region; E03.8 Other specified hypothyroidism; D69.6 Thrombocytopenia, unspecified; Z76.89 Persons encountering health services in other specified circumstances; Z95.828 Presence of other vascular implants and grafts; Z95.3 Presence of xenogenic heart valve | CPT/HCPCS: 69210; 96127; 99202 ==

== ENCOUNTER 2024-10-01 14:27 | Outpatient (AMB) | payer MEDICARE, SELFPAY ==
[2024-10-01 14:29] VITALS: BP 186/97; PULSE 99; RESP 16; TEMP 36.6; O2SAT 96; BMI 18.6
--- NOTE | 2024-10-01 14:29 | A.OFFPC_ITS ---
Vital Signs 10/01/24 14:29 10/01/24 14:48 10/01/24 16:31 Height 5 ft 6 in Weight 115 lb BMI 18.6 BP 186/97 H 187/108 H 161/96 H Blood Pressure Location Rt brachial Position Sitting Respiration 16 Pulse 99 Pulse Source Pulse Oximeter Temp 97.8 F Temp Source Temporal Artery Scan Pulse Oximetry (%) 96 Oxygen Delivery Method Room Air Intake Visit Reasons: evaluation for VNA and ElderCare services Patient Services Specialist Required: No Accompanied by: niece Allergies penicillin V Allergy (Unknown, Verified 10/01/24 14:57) unk Medication List - Last Reconciled 10/01/24 by Naida Iyer PA-C amlodipine 10 mg PO DAILY aspirin (Alfonso Chewable Low Dose Aspirin) 81 mg PO DAILY lidocaine 5% (Lidoderm) 1 patch topical DAILY PRN metoprolol succinate ER 50 mg PO BID Tobacco use date assessed: 10/01/24 Dental Screening Dental Screen Date: 08/23/24 HPI evaluation for VNA and ElderCare services HPI Details The patient is an 83-year-old female presenting with hypertension and dizziness. Hypertension was noted during the visit with a significantly elevated blood pressure reading. The patient reported dizziness upon waking, which persisted throughout the day although niece at bedside reports she has been complaining of intermittent dizziness over the past few weeks to months. She also had falls a proximally few months ago due to this. She denies any changes in vision, confusion, paresthesias, focal weakness, chest pain or shortness of breath, difficulty speaking, drooling, recent falls or head injury, abdominal pain, back or flank pain, urinary symptoms, rashes or any other symptoms complaints or concerns at this time. The patient has a history of atrial fibrillation, which requires careful management, especially in light of her current symptoms. She has experienced unexplained falls in the past, attributed to unsteadiness on her feet, although these were not recent. The patient is allergic to penicillin, which complicates her treatment options for dental prophylaxis. Her niece is at bedside with concerns that the patient has had frequent falls she lives alone and concerned that the patient should have visiting nurses and home health aides. In her last visit we attempted to place a VNA and home health aide referral although due to patient still having her license she was not accepted into the programs. Her license was taken away today. Her niece will drive her anywhere she needs to go. Therefore will replace the VNA and home health aide referrals. Patient also interested in PT therapy. Social History - Housing: The patient lives alone, matt duran may impact her ability to manage her health conditions effectively. - Family Support: She has family members nearby who assist with transportation and daily activities. [facility] Medical History (Updated 10/01/24 @ 16:45 by Naida Iyer PA-C) History of fall Atrial fibrillation Dizziness Fatigue Varicose veins of bilateral lower extremities with pain Gait instability Lower extremity weakness Thrombocytopenia Subclinical hypothyroidism Multilevel cervical spondylosis without myelopathy Evaluation of hearing impairment Recurrent falls Multiple lacunar infarcts Pulmonary nodule Establishing care with new doctor, encounter for History of bicuspid aortic valve Persistent atrial fibrillation Surgical History Status post ascending aortic replacement Status post aortic valve replacement with bioprosthetic valve History of cardiac catheterization (~03/2017) History of transesophageal echocardiography (EDA) (~03/2017) History of aortic valve replacement with bioprosthetic valve (~03/2017) Family History Father No problems noted. Mother No problems noted. Social History Housing: House Alcohol intake: current Alcohol intake frequency: does not drink Patient Tobacco Use Status: Never used Tobacco service: No Current occupational status: retired Cognitive needs: Yes (walker) Hearing needs: No Vision needs: No Questionnaire PHQ-9 Over the last 2 weeks, how often have you been bothered by any of the following problems? 1. Little interest or pleasure in doing things: not at all 2. Feeling down, depressed, or hopeless: not at all 3. Trouble falling or staying asleep, or sleeping too much: not at all 4. Feeling tired or having little energy: not at all 5. Poor appetite or overeating: not at all 6. Feeling bad about yourself - or that you are a failure or have let yourself or your family down: not at all 7. Trouble concentrating on things, such as reading the newspaper or watching television: not at all 8. Moving or speaking so slowly that other people could have noticed. Or the opposite - being so fidgety or restless that you have been moving around a lot more than usual: not at all 9. Thoughts that you would be better off or of hurting yourself in some way: not at all Total score: 0 Depression Screening Interpretation: Negative Depression Screening Done: Yes 47910 - PHQ-9 Billing: Yes Source: Developed by Drs. Miko Bland, Geovanna Davidson, Kevin Gillespie and colleagues, with an educational marie from [employer]. Thrive Questionnaire Date Thrive assessed: 08/23/24 I am a: Patient What is your living situation today?: I have a steady place to live Within the past 12 months, did the food you bought not last and you didn't have the money to get more?: Never true Within the past 12 months, did you worry whether your food would run out before you got money to buy more?: Never true Do you have trouble paying for medicines?: No Do you have trouble getting transportation to medical appointments?: No Do you have trouble paying your heating and electricity bill?: No Do you have trouble taking care of your child, family member or friend?: No Do you have trouble with day-to-day activities such as bathing, preparing meals, shopping, managing finances, etc.?: No Are you currently unemployed and looking for a job?: No Are you interested in more education?: No Please select the resources that you would like help with: None THRIVE Score: 0 AUDIT C Alcohol Use Questionnaire (AUDIT-C) 1. How often do you have a drink containing alcohol?: Never 3. How often do you have six or more drinks on one occasion?: Never Total Score: 0 Score Reviewed/Action Taken: No JESSY-7 AMB Questionnaire JESSY-7 Date JESSY - 7 assessed: 08/23/24 Feeling nervous, anxious, or on edge: 0 = Not at all Not being able to stop or control worryin = Not at all Worrying too much about different things: 0 = Not at all Trouble relaxin = Not at all Being so restless that it is hard to sit still: 0 = Not at all Becoming easily annoyed or irritable: 0 = Not at all Feeling afraid as if something awful might happen: 0 = Not at all Total JESSY-7 score (0-4 normal; 5-9 mild; 10-14 moderate; 15-21 severe): 0 Source: Developed by Drs. Miko Bland, Geovanna Davidson, Kevin Gillespie and colleagues, with an educational marie from [employer]. JESSY-7 Assessment Billing JESSY-7 Assessment Tool: JESSY-7 Assessment 01242 Review of Systems Const Details: - Cardiovascular: Reports dizziness, denies chest pain or palpitations. - Neurological: Reports dizziness, denies changes in vision or slurred speech. - Musculoskeletal: Denies recent falls, but reports past falls due to unsteadiness. Physical exam (Primary Care) Vital Signs: Last Vital Signs Temp 97.8 F 10/01/24 14:29 Pulse 99 10/01/24 14:29 Resp 16 10/01/24 14:29 BP 187/108 H 10/01/24 14:48 Pulse Ox 96 10/01/24 14:29 Oxygen Delivery Method Room Air 10/01/24 14:29 Care Plan Goal for BP management: <140/90 patient to continue amlodipine 10 mg and metoprolol extended release 50 mg p.o. b.i.d. and keep a blood pressure diary and return in 1-2 months for recheck blood pressure BMI result Body Mass Index 18.6 Normal BMI Tobacco/Smoking Status: Tobacco use Status Tobacco use date assessed 10/01/24 10/01/24 14:31 Patient Tobacco Use Status Never used Tobacco 10/01/24 14:31 PHQ-9: PHQ-9 Score PHQ-9: Total score 0 10/01/24 14:31 Depression Screening Interpretation: Negative Thrive Assessment: Date of Thrive Assessment Date Thrive assessed 08/23/24 10/01/24 14:31 Const Other: Appearance: Alert. Oriented X3. No acute distress. Head: Normal external exam. Normocephalic. Atraumatic. Eyes: Pupils are equal, round, and reactive to light. Extraocular movements intact. Conjunctiva and sclera normal. Eyelids normal. Ears: External auditory canal normal. Tympanic membranes normal. Throat: Pharynx normal. Uvula midline. Moist mucous membranes. Neck: Normal inspection. Neck supple. Full range of motion. No adenopathy. Thyroid Normal. No meningeal signs. No neck mass noted. Cardiovascular: Normal heart rate and rhythm. Heart sound normal. No murmurs noted. Pulses normal throughout. Respiratory: No respiratory distress. Painless inspiration. Breath sounds normal. No wheezes/rales/rhonchi noted. Chest nontender. No accessory muscle usage noted or decreased air movement noted. Abdomen: Soft and nontender. Bowel sounds normal in all 4 quadrants. No distention noted. No organomegaly noted. No visible injury noted. Back: No costovertebral angle tenderness. Full range of motion noted. Skin: Skin warm and dry. Normal skin color. Normal skin turgor. No rashes/lesions/lacerations noted. Extremities: No lower extremity edema. Extremities exhibit normal range of motion. Extremities nontender. Neuro: Oriented X 3. No motor deficit. No sensory deficit. Reflexes normal. Speech noted to be slightly slurred although chronic and appears similar when compared to prior visit niece agrees. Patient reports dizziness and fatigue. Patient had a normal neuro exam with a NIH SS score of 0. Patient has non disabling symptoms therefore would not be a tPA candidate and reports that she woke up with the symptoms and have been intermittent over the past 1-2 months. She has a negative pronator drift. Negative Romberg. Normal uzdnui-[id number]-motv test. She had a normal steady gait. No assistive devices needed on this exam. Coding Level of Care Code Est Pt Level 5 (59689) Complex EM visit Add On G2211 Diagnoses Essential hypertension I10 Atrial fibrillation I48.91 History of fall Z91.81 Additional Codes JESSY-7 Assessment Billing - JESSY-7 Assessment Tool: JESSY-7 Assessment 34136 ([id number]) PHQ-9 - 02728 - PHQ-9 Billing: Yes ([id number]) Time Spent (min) 60 Assessment & Plan Assessment & Plan (1) Essential hypertension: Code(s): I10 - Essential (primary) hypertension Category: Medical Plan: The patient's blood pressure was significantly elevated during the visit, raising concerns about potential complications such as stroke. Although patient has a normal neuro exam and she has been having intermittent dizziness for the past few months where she has had recurrent falls. NIH SS score 0. It was recommended that she undergo blood work and possibly visit the emergency room if symptoms persist. I also consulted with Hellen Archer the die engraving supervisor and she recommended making sure the patient is taking 10 mg of amlodipine, metoprolol 50 mg extended release twice a day as patient was not taking this at her last visit for the die engraving supervisor. And she also recommended starting the patient on lisinopril 5 mg with rechecked in 2 weeks for blood pressure. I called the patient's niece and left a message that the patient should start lisinopril 5 mg today and we will call her to breathe book her for 2 week follow-up for blood pressure check. Although patient was instructed to go to the emergency department if symptoms persist or if any new symptoms arise. Patient with niece understood and agree with this plan. (2) Atrial fibrillation: Code(s): I48.91 - Unspecified atrial fibrillation Category: Medical Plan: The patient has a known history of atrial fibrillation, which necessitates careful monitoring and management. A referral to a die engraving supervisor was discussed to ensure appropriate management of her condition. (3) History of fall: Code(s): Z91.81 - History of falling Category: Medical Plan: The patient has experienced falls in the past, attributed to unsteadiness, although no recent falls were reported. A referral for physical therapy was considered to improve her stability and prevent future falls. Plan Plan Patient was informed and verbally consented to the use of an ambient scribe for clinic note documentation during this visit. 1. Hypertension The patient's blood pressure was significantly elevated during the visit, raising concerns about potential complications such as stroke. It was recommended that she undergo blood work and possibly visit the emergency room if symptoms persist. 2. Atrial Fibrillation The patient has a known history of atrial fibrillation, which necessitates careful monitoring and management. A referral to a die engraving supervisor was discussed to ensure appropriate management of her condition. 3. History Of Falls The patient has experienced falls in the past, attributed to unsteadiness, although no recent falls were reported. A referral for physical therapy was considered to improve her stability and prevent future falls. 4. Allergic Reaction To Penicillin The patient is allergic to penicillin, complicating her dental prophylaxis regimen. Alternative antibiotics need to be considered for any future dental procedures. During the visit, I discussed the importance of managing hypertension and the potential risks associated with high blood pressure, such as stroke. I recommended blood work and advised that if dizziness persists, the patient should consider visiting the emergency room. We also discussed the management of her atrial fibrillation and the need for a cardiology referral. Given her history of falls, I suggested a referral for physical therapy to improve her stability. Due to her penicillin allergy, alternative antibiotics for dental prophylaxis were considered. Orders: Orders Comprehensive Met. Panel Today Z00.00 - Encounter for general adult medical examination without abnormal findings XR chest 2V Today R53.83 - Other fatigue ECG 12 lead EKG Today R53.83 - Other fatigue UA CC w/rflx Micro + Cult Today R53.83 - Other fatigue CT head/brain wo IV con Today R42 - Dizziness and giddiness MR head/brain wo con Today R42 - Dizziness and giddiness Referrals Vascular Surgery Referral I83.813 - Varicose veins of bilateral lower extremities with pain Medications: New lisinopril 5 mg PO DAILY 90 tabs 1RF Patient Instructions: During the visit, I discussed the importance of managing hypertension and the potential risks associated with high blood pressure, such as stroke. I recommended blood work and advised that if dizziness persists, the patient should consider visiting the emergency room. We also discussed the management of her atrial fibrillation and the continue follow-ups for a cardiology referral. We started her on lisinopril 5 mg with follow-up in 2 weeks. Given her history of falls, I suggested a referral for physical therapy to improve her stability. Due to her penicillin allergy, alternative antibiotics for dental prophylaxis were considered. Her license was taken away so she can receive VNA/home health aide services.
--- OUTSIDE RECORDS SUMMARY | 2024-10-01 14:30 | XMS_ITS | Data Portability ---
Author Organization [place] [facility] Address [address] [place] [address] Care Team Providers Care Commercial Drone Pilot Name Role Phone JOSEPHDUSTIN COOL Primary Care Provider [phone] JOANA MASSEY OTHER [phone] Assessment Encounter Date Assessment Date Assessment LastModified by Organization Details LastModified Time 09/17/2022 09/17/2022 Brief Overview: 81 year old F with previous medical history of afib, htn, cad, aortic stenosis with cc today of syncopal episode 3 days ago. Pt reports that she was getting ready to go outside and the next thing she knew she was on the floor. Denies any sx prior to falling and not able to identify any injuries after she woke up. She did not lose bowel/ bladder control. Denies dizziness, chest pain, weakness, sob, N/D/V, neck pain, changes in vision. New to provider and to . Vital Signs: 97.6 F ear (36.44 C) 88 170 / 100 Abnormal repeat 152/ 80 18 98 % Room Air at Rest Exam: Pt looks well, non toxic. Sitting outside with friend talking easily in completely non labored sentences. Gets up to walk into home with steady gait no mobility issues. Cardiac: No murmurs, irreg irreg. Lungs: CTA, no wheezing or coughing. Neuro: finger to nose, alternating hands normal. facies symmetric and normal. gait steady. no focal neuro deficit's. Voice is clear. DDx considered, with rationale: Syncope- pt denies dizziness until she went from laying to sitting while performing EKG. She reported that she had not been having positional light headedness until DH was present. Syncope possibly secondary to cardiac arrhythmia, anemia, electrolyte abnormality including dehydration, cva, pe. EKG does show afib with controlled rate. CVA- not likely without weakness, vision changes, headache Anemia, electrolyte abnormality, cva, dehydration, pe, orthostatic hypotension all non consistent with exam or findings on istat. Pt is without chest pain, back pain, hypoxia, sirs criteria, sob. Proper Personal Protective Equipment (PPE), including gloves, eye protection and masks were donned and doffed appropriately and all equipment cleaned using approved technique with germicidal disposable wipes prior to and after care of this patient according to [facility]'s infection prevention protocols. [email or web address] Not available 09/17/2022 12:48:04 Plan of Treatment Reminders Order Date Submit Date Provider Last Modified By Organization Details Last Modified Time Details Appointments None recorded. Lab BMP + ionized calcium, serum or plasma 023 023 [facility], [address] [place] [address] Pratik, [place], [address], 05:01:56 Referral None recorded. Procedures None recorded. Surgeries None recorded. Imaging None recorded. Medication Orders None recorded. Patient TargetsNo targets recorded. Patient Instructions Encounter Date Encounter Id Patient Instructions Last Modified By Organization Details Last Modified Time 09/17/2022 [id number] Thank you for yo ur visit with [facility] today. We cannot always find the exact cause of your symptoms during your initial visit. Please follow up with your primary care provider or specialist within 12-24 hours to be rechecked or seek medical attention if your symptoms do not go away or get worse. If you develop any new or worsening symptoms and need after hours care, please go to nearest ER and/or call 911. If you have additional concerns or develop a change in your condition between 8am-10pm, please call [facility] at [phone] to help navigate your care. [email or web address] Not available 09/17/2022 12:48:11 Lab ResultsBMP + ionized calcium, serum or plasma glu: 117mg/dL ref: 70-105 BUN: 14mg/dL ref: 8-26 crea: 0.8mg/dL ref: 0.6-1.3 Na: 139mmol/L ref: 138-146 K: 4.0mmol/L ref: 3.5-4.9 cL: 103mmol/L ref: 98-109 TCO2: 24mmol/L ref: 24-29 angap: 17mmol/L ref: 10-20 ica: 1.20mmol/L ref: 1.12-1.32 HCT: 41%pcv ref: 38-51 Hb: 13.9g/dL ref: 12- API-223 Not available 09/17/2022 12:09:56 Reason for Referral None Reported. Results Created Date Observation Date Name Description Value Unit Range Abnormal Flag Note LastModifiedBy Organization Detail LastModifiedTime 09/18/19 23 09/17/2022 BMP + IONIZ ED CALCI UM, SERUM OR PLASM A glu 117 mg/dL 70-105 Not Available [address], [address], 09/17/2022 12:08:56 09/18/19 23 09/17/2022 BMP + IONIZ ED CALCI UM, SERUM OR PLASM A BUN 14 mg/dL 8-26 Not Available [address], [address], 09/17/2022 12:08:56 09/18/19 23 09/17/2022 BMP + IONIZ ED CALCI UM, SERUM OR PLASM A crea 0.8 mg/dL 0.6-1. 3 Not Available [address], [address], 09/17/2022 12:08:56 09/18/19 23 09/17/2022 BMP + IONIZ ED CALCI UM, SERUM OR PLASM A Na 139 mmol/ L 138-14 6 Not Available [address], [address], 09/17/2022 12:08:56 09/18/19 23 09/17/2022 BMP + IONIZ ED CALCI UM, SERUM OR PLASM A K 4.0 mmol/ L 3.5-4. 9 Not Available [address], [address], 09/17/2022 12:08:56 09/18/19 23 09/17/2022 BMP + IONIZ ED CALCI UM, SERUM OR PLASM A cL 103 mmol/ L 98-109 Not Available [address], [address], 09/17/2022 12:08:56 09/18/19 23 09/17/2022 BMP + IONIZ ED CALCI UM, SERUM OR PLASM A TCO2 24 mmol/ L 24-29 Not Available [address], [address], 09/17/2022 12:08:56 09/18/19 23 09/17/2022 BMP + IONIZ ED CALCI UM, SERUM OR PLASM A angap 17 mmol/ L 10-20 Not Available [address], [address], 09/17/2022 12:08:56 09/18/19 23 09/17/2022 BMP + IONIZ ED CALCI UM, SERUM OR PLASM A ica 1.20 mmol/ L 1.12-1 .32 Not Available [address], [address], 09/17/2022 12:08:56 09/18/19 23 09/17/2022 BMP + IONIZ ED CALCI UM, SERUM OR PLASM A HCT 41 %pcv 38-51 Not Available [address], [address], 09/17/2022 12:08:56 09/18/19 23 09/17/2022 BMP + IONIZ ED CALCI UM, SERUM OR PLASM A Hb 13.9 g/dL 12-17 Not Available [address], [address], 09/17/2022 12:08:56 09/18/19 elect roclincoln elenagr am No observ ation record ed. [email or web address] Not Available 2022 12:48:45 Result Notes None recorded. Procedures Surgical History Date Name Laterality Status Provider Name and Address Organization Details Recorded Time 09/18/19 Medication Review completed Alis Eastman NP [address], [place], [address], [place] [facility] 09/17/2022 12:12:11 09/18/19 Venipuncture - completed Alis Eastman NP [address], [place], [address], [place] [facility] 09/22/2022 09:20:14 09/18/19 ECG Interpretation - completed Alis Eastman NP [address], [place], [address], [place] [facility] 09/17/2022 12:03:39 replacement of aortic valve completed Alis Eastman NP [address], [place], [address], [place] [facility] 09/17/2022 11:24:07 Imaging Results None recorded. Procedure Notes None recorded. Medical Equipment None Reported. Allergies No known drug allergies Medications Name Sig Start Date Stop Date Status Note LastModified by Organization Details LastModified Time metoprolol succinate ER 50 mg tablet,exten ded release 24 hr TAKE ONE TABLET BY MOUTH TWICE A DAY active Not Available Not Available No t Available amlodipine 5 mg tablet Take 1 tablet every day by oral route. active Not Available Not Available No t Available Vitals Date Recorded Systolic And Diastolic Provider Name and Address Organization Details Last Updated DateTime 09/17/2022 152/80 mm[Hg] Alis Eastman NP [address], [place], [address], [place] [facility] 09/17/2022 12:43:51 Date Recorded Oxygen saturation Oxygen saturation in Arterial blood by Pulse oximetry Body temperature Heart rate Respiratory rate Systolic And Diastolic Provider Name and Address Organization Details Last Updated DateTime 98 % 98 % 97.6 [degF] 88 /min 18 /min 170/100 mm[Hg] Not Available [facility] 12:18:03 Social History Question Answer Notes LastModified by Organizat ion Details LastModified Time Tobacco Smoking Status Never Smoker Alis Eastman, HERIBERTO [address], [place], [address], [place] [facility] 09/17/2022 11:24:19 Do You Have An Advance Directive? No [email or web address] Information not available 09/17/2022 What Is Your Code Status? Full Code Information not available 09/17/2022 Within The Past 12 Months, Has It Happened That The Food You Bought Just Didn't Last And You Didn't Have Money To Get More. Never True Information not available 09/17/2022 Within The Past 12 Months, Have You Worried That Your Food Would Run Out Before You Got Money To Buy More. Never True [email or web address] Information not available 09/17/2022 We Know That How And When People Interact With Friends And Family Can Be Very Different From Person To Person. How Often Do You Have The Opportunity To See Or Talk To People That You Care About And Feel Close To? (Ex: Talking To Friends On The Phone Or Visiting Friends Or Family Or Going To Gnostic[employer] Or Club Meetings) 5 Or More Times Per Week [email or web address] Information not available 09/17/2022 Excessive Alcohol Or Drug Use No [email or web address] Information not available 09/17/2022 Does This Patient Have A PCP? Yes [email or web address] Information not available 09/17/2022 Has The Patient Seen Their PCP In The Past 6 Months? Yes [email or web address] Information not available 09/17/2022 Is This Patient In Hospice? No Information not available 09/17/2022 ADL: Do You Need Help With Daily Activities Such As Bathing, Preparing Meals, Dressing, Or Cleaning? No [email or web address] Information not available 09/17/2022 Social Support: Do You Feel Safe? Yes [email or web address] Information not available 09/17/2022 We Know From Many Of Our Patients That Covering All Of Their Costs Can Be Difficult At Times. This Can Cause Stress And Impact Health. In The Past Year, Have You Been Unable To Get Any Of The Following When It Was Really Needed? No [email or web address] Information not available 09/17/2022 Would You Like Help Connecting To Resources? None [email or web address] Information not available 09/17/2022 Has Tobacco Cessation Counseling Been Provided? No [email or web address] Information not available 09/17/2022 Sex: Unknown Functional Status Question Answer Note LastModified by Organizat ion Details LastModified Time Do you use any illicit or recreational drugs? No Information not available 09/17/2022 What is your level of alcohol consumption? None [email or web address] Information not available 09/17/2022 Mental Status None recorded. Family History Relationship Description Onset Age of this Age Resolved Age Notes LastModified by Organization Details LastModified Time Father No current problems or disability Not available 09/17 11:23:36 Mother No current problems or disability [email or web address] Not available 09/17 11:23:36 Medical History Condition Response Coronary Artery Disease Y A-fib Y Hypertension Y Gynecological HistoryNo gynecological history recorded. Obstetrics History GPAL:G 0 P 0 0 0 0 Past Encounters Encounter ID Performer Location Encounter Start Date Encounter Closed Date Diagnosis/Indication Diagnosis SNOMED-CT Code Diagnosis ICD10 Code Diagnosis Note [id number] Alis Eastman NP [facility] [address] [place] [address] 09/17/2022 11:14:26 09/18/2022 18:20:54 Syncope [id number] R55 Status of condition: Acute. Testing/Re sults: EKG shows afib rate controlled , ST depression in lead II. Verified reading and plan of care with Dr Kelley Discussion :Pt states that she continues with orthostati c light headedness . When laid pt down for EKG and then sat her up, continued to have sx after 15 min of sitting although improved. HR remained the same with position changes, BP improved to 152/ 80. Discussed with patient that due to persistent dizziness it is my recommenda tion that she goes to the ED. Pt is very high risk for falls with sudden syncopal episode and also lives alone. Friend that is currently with her is going to stay for the day but unless pt is able to get friend to stay with her tonight she will be alone. Friend will also drive her to her cardio apt tomorrow which I stressed was very important to go to due to current sx. Istat is wnl, Physical exam is normal vital signs are all normal. No evidence of dehydratio n, ID, stroke on exam. Plan, Medication Management & Follow-up recommenda tions:Due to patient's symptoms with persistent lightheade dness with position changes recommende d to go to the ER due to risk for falls which patient declined understand s that she could fall and hit her head which potentiall y could be catastroph icPatient understand s the importance with follow up with cardiologi st tomorrow verified call cardiologi st name and address swallowing able to fax over the EKG to himFriend is going to stay with patient today and hopefully tonight and friend to drive [facility] tomorrowLo w threshold for ER follow up with worsening dizziness or chest pain, concerning symptoms. Pt states that she will not go right now but if things get worse she will. Chronic at rial fibrillation 930922077 I48.20 Status of condition: Chronic. Testing/Re sults:EKG shows afib rate controlled Discussion :Afib possible cause of patients dizziness. Afib is not new, per patient is always in afib. Pt was on Coumadin in the past but stopped due to risks vs. benefits. Pt also does live alone.Disc ussed with patient importance of taking her meds as prescribed to control her HR and to follow up with cardiologi st tomorrow. Plan, Medication Management & Follow-up recommenda tions:Take meds as prescribed Essential hypertension [id number] I10 Status of condition: Chronic. Testing/Re sults: Repeat BP improved. Pt already took BP meds today Discussion : No headache, chest pain one exam. no concern for hypertensi ve emergency on exam. Plan, Medication Management & Follow-up recommenda tions:cont inue current meds, continue taking BP at home which has been running normally. Pt started to become anxious after discussion of escalation could be causing BP to remain elevated Health Concerns Section Related Observation LastModified by Organization Detai ls LastModified Time None Recorded Concern Status LastModified by Organization Details LastModified Time None Recorded Advance Directives Directive N: Payers Insurance Date Sequence Insurance Name Policy Number Policy Roa Covered Member ID Roa Member ID Guarantor Name 09/16/2022 1 *SELF PAY* Sunita Miller [id number] Sunita Miller 09/16/2022 2 [facility] [id number] Sunita Miller [id number] Sunita Miller 09/25/2022 1 [place] [facility] Sunita Miller [id number] Sunita Miller 09/16/2022 1 [place] [facility] Sunita Miller [id number] Sunita Miller 09/18/2022 2 [place] [id number] Sunita Miller [id number] Sunita Miller 09/16/2022 1 [place] [facility] Sunita Miller [id number] Sunita Miller 09/18/2022 2 [place] [id number] Sunita Miller [id number] Sunita Miller Notes Date Note Type Note Provider Name and Address Organization Details Recorded Time 09/17/2022 text/html Pt states was going outside and the next thing she knew she had fallen down and passed out. Pt states woke up on the floor. Immediately woke up and knew that she fell. Does have bruise to L elbow otherwise denies injuries. Pt states that the only complaint she has is that she feels tired but this is chronic. Pt states that she thinks this has been since she started her medications post aortic stenosis surgery. Unwittnessed fall.Has director learning and development apt tomorrow.BP normally 130s/70s. Has taken BP meds today.Denies dizziness, chest pain, weakness, seizure activity, headache, Alis Eastman NP [address], [place], [address], [place] [facility] 09/22/2022 09:20:24 OBGyn Episode No OBEpisode recorded.
[2024-10-01 14:48] VITALS: BP 187/108
[2024-10-01 16:31] VITALS: BP 161/96
== END 2024-10-01 15:28 | disposition home or self-care (01) ==
LOC: HO.HMCSH 14:28
PROVIDERS: PCP Internal Medicine; Visit Provider Physician Assistant Medical
DX: I10 Essential (primary) hypertension (principal); I48.91 Unspecified atrial fibrillation; Z91.81 History of falling

== ENCOUNTER → 2024-10-01 14:27 | Outpatient (REF) | payer MEDICARE, SELFPAY ==
--- NOTE | ~2024-10-01 | XR_ITS ---
EXAMINATION: XR CHEST CLINICAL INFORMATION: R53.83 - Other fatigue COMPARISON: April 16, 2017 TECHNIQUE: 2 views of the chest were obtained. FINDINGS: There is cardiomegaly. There are mediastinal wires. Prosthetic valve is noted, likely mitral. Surgical clips are present in the anterior mediastinum. Lungs are hyperexpanded and clear. There is subtle blunting of the posterior costophrenic angles. XR/XR chest 2V IMPRESSION: No acute disease. Cardiomegaly. Mitral valve replacement. Electronically signed by: Wilner Cedeño MD 10/01/2024 04:56 PM EDT
--- NOTE | 2024-10-01 15:59 | ECG_ITS ---
Test Reason : FATIGUE Blood Pressure : */* mmHG Vent. Rate : 91 BPM Atrial Rate : * BPM P-R Int : * ms QRS Dur : 94 ms QT Int : 372 ms P-R-T Axes : * -19 65 degrees QTcB Int : 457 ms Atrial fibrillation Moderate voltage criteria for LVH, may be normal variant ( Sokolow-Perez , [place] product ) Cannot rule out Anteroseptal infarct (cited on or before 16-Apr-2017) Abnormal ECG When compared with ECG of 02-Aug-2024 12:46, ST no longer depressed in Inferior leads Referred By: Naida Iyer Electronically Signed By: Clifton Plascencia
[2024-10-01 16:24] LABS: MANUAL DIFF FLAG NO
[2024-10-01 17:07] LABS: Appearance Urine Cloudy; Glucose Urine UA Negative (Negative); PH 7.0 (5.0-9.0); Specific Gravity - Urine 1.010 (1.005-1.025); UMIC TRIGGER UACC YES
[2024-10-01 17:19] LABS: UACC Culture Trigger YES
[2024-10-01 17:31] LABS: Hemoglobin A1C 131.3177 umol/L; Total Hemoglobin (HGBA1C) 3248.5286 umol/L
[2024-10-01 17:43] LABS: Alanine Aminotransferase 10 U/L (0-31); Albumin Level 3.8 g/dL (3.5-5.0); Alkaline Phosphatase 92 U/L (39-117); Anion Gap 10 (12-20); Aspartate Amino Transferase 20 U/L (5-31); Blood Urea Nitrogen 15 mg/dL (9-16); Calcium 9.2 mg/dL (8.4-10.2); Carbon Dioxide 29 mmol/L (22-29); Chloride 102 mmol/L (96-108); Estimated Glomerular Filt Rate > 60; Magnesium 2.0 mg/dL (1.6-2.6); Potassium 3.8 mmol/L (3.3-5.1); Sodium 137 mmol/L (135-145); Total Protein 7.7 g/dL (6.5-8.0)
[2024-10-01 17:44] LABS: Hematocrit 37.5 % (37.0-47.0); Hemoglobin 12.2 g/dl (12.0-16.0); Imm Gran Abs Auto 0.02 X10*3/uL (0.00-0.03); Imm Gran Pct Auto 0.3 % (0.0-0.4); Lymphocytes Absolute Auto 1.6 X10*3/uL (1.2-4.9); Mean Corpuscular HGB Conc 32.5 g/dl (31.0-35.0); Mean Corpuscular Hemoglobin 27.1 pg (27.0-33.0); Mean Corpuscular Volume 83.3 fL (80.0-98.0); NRBC Abs Auto 0.000 X10*3/uL (0.0-0.012); NRBC Pct Auto 0.0 /100WBC (0.0-0.2); Platelet Count 138 X10*3/uL (160-400); Red Blood Count 4.50 X10*6/uL (4.20-5.50); White Blood Count 5.8 X10*3/uL (4.8-10.8)
[2024-10-01 18:12] LABS: Folate 8.7 ng/mL (> or = 4.0); Vitamin B12 311 pg/mL (200-900)
[2024-10-01 19:56] LABS: Free T4 (Free Thyroxine) 0.90 ng/dL (0.71-1.85)
== END ==
LOC: HO.CARD 14:27
PROVIDERS: PCP Internal Medicine; Visit Provider Physician Assistant Medical
DX: Z00.00 Encounter for general adult medical examination without abnormal findings (principal); I10 Essential (primary) hypertension; I48.91 Unspecified atrial fibrillation; Z91.81 History of falling; Z13.1 Encounter for screening for diabetes mellitus; R53.83 Other fatigue; R42 Dizziness and giddiness; I83.813 Varicose veins of bilateral lower extremities with pain
CPT/HCPCS: 36415; 71046; 80053; 81001; 82248; 82306; 82550; 82607; 82746; 83036; 83735; 84439; 84443; 85025; 86140; 87086; 93005; 96127; 99212

== ENCOUNTER → 2024-10-01 15:59 | Outpatient (BNV) | payer MEDICARE, SELFPAY | PROVIDERS: PCP Internal Medicine; Visit Provider Internal Medicine Cardiovascular Disease | DX: I48.91 Unspecified atrial fibrillation (principal) | CPT/HCPCS: 93010 ==

== ENCOUNTER → 2024-10-01 16:38 | Outpatient (BNV) | payer MEDICARE, SELFPAY | PROVIDERS: PCP Internal Medicine; Visit Provider Radiology Diagnostic Radiology | DX: R53.83 Other fatigue (principal); I51.7 Cardiomegaly; Z95.2 Presence of prosthetic heart valve | CPT/HCPCS: 71046 ==

== ENCOUNTER 2024-10-07 13:35 | Outpatient (AMB) | payer MEDICARE, SELFPAY ==
[2024-10-07 13:44] VITALS: BP 118/60; PULSE 82; BMI 17.4
--- NOTE | 2024-10-07 13:44 | MHC.OFFVIS ---
Vital Signs 10/07/24 13:44 Height 5 ft 6 in Weight 108 lb BMI 17.4 BP 118/60 Blood Pressure Location Lt brachial Position Sitting Pulse 82 Pulse Source Pulse Oximeter Intake Visit Reasons: overdue follow up/med review Allergies penicillin V Allergy (Unknown, Verified 10/01/24 14:57) unk Medication List - Last Reconciled 10/07/24 by Aldo Conde MD amlodipine 10 mg PO DAILY aspirin (Alfonso Chewable Low Dose Aspirin) 81 mg PO DAILY levothyroxine (Euthyrox) 25 mcg PO DAILY 6 weeks lidocaine 5% (Lidoderm) 1 patch topical DAILY PRN lisinopril 5 mg PO DAILY mecobalamin (vitamin B12) 1,000 mcg PO DAILY metoprolol succinate ER 50 mg PO BID vit C,C-To-pflgi-lutein-zeaxan 250-90-40-1 mg (PreserVision AREDS-2) 1 tab PO BID HPI Comments Details: Sunita returns for follow-up. Various cardiac issues including history of aortic valve replacement, ascending aortic graft as well as atrial fibrillation. She is generally resistant to medical care unless the situation is truly urgent/serious. To recall, she was admitted in 2018 for acute heart failure and also had atrial fibrillation with rapid rate. She had a new diagnosis of severe aortic stenosis. Cardiac catheterization then did not reveal any significant coronary disease. Then underwent bioprosthetic aortic valve replacement. Preoperative transesophageal echocardiogram was positive for thrombus in the left atrial appendage and the appendage itself was actually removed during surgery. Her ascending aorta was also dilated and she underwent replacement of the same. She has been cardioverted for the atrial fibrillation as well. However she went back into atrial fibrillation and then was left on rate control. Over the last few months, it seems that she has fallen down a few times. Unknown etiology. Blood pressure indeed was running high but today it seems within normal limits. Per last note, it seems she was not really taking any medications either. Of note, she has lost lot of weight over the last 3-4 years. Almost 30-40 lb. Looks quite weak. No clear-cut cardiac symptoms like chest pains or shortness of breath. [facility] Medical History (Updated 10/04/24 @ 13:31 by Naida Iyer PA-C) Hypothyroidism (acquired) UTI (urinary tract infection) History of fall Atrial fibrillation Dizziness Fatigue Varicose veins of bilateral lower extremities with pain Gait instability Lower extremity weakness Thrombocytopenia Subclinical hypothyroidism Multilevel cervical spondylosis without myelopathy Evaluation of hearing impairment Recurrent falls Multiple lacunar infarcts Pulmonary nodule Establishing care with new doctor, encounter for History of bicuspid aortic valve Persistent atrial fibrillation Surgical History Status post ascending aortic replacement Status post aortic valve replacement with bioprosthetic valve History of cardiac catheterization (~03/2017) History of transesophageal echocardiography (EDA) (~03/2017) History of aortic valve replacement with bioprosthetic valve (~03/2017) Family History Father No problems noted. Mother No problems noted. Social History Housing: House Alcohol intake: current Alcohol intake frequency: does not drink Patient Tobacco Use Status: Never used Tobacco service: No Current occupational status: retired Cognitive needs: Yes (walker) Hearing needs: No Vision needs: No Review of Systems Const Denies weakness ENT Denies dizziness Card Denies chest pain, Denies chest pain with activity, Denies syncope, Denies rapid heart rate, Denies pedal edema, Denies edema, Denies leg edema, Denies lightheadedness, Denies palpitations, Denies dyspnea, Denies dyspnea on exertion and Denies orthopnea Resp Denies cough, Denies dyspnea and Denies dyspnea on exertion GI Denies hematochezia and Denies change in stool character Musc Denies abnormal gait, Denies muscle cramps, Denies muscle weakness, Denies numbness, Denies radiating pain into limb and Denies tingling Neuro Denies abnormal gait, Denies dizziness, Denies syncope, Denies numbness, Denies tingling and Denies weakness Endo Denies palpitations Physical Exam Vital Signs: Last Vital Signs Pulse 82 10/07/24 13:44 BP 118/60 10/07/24 13:44 BMI result Body Mass Index 17.4 Const General: no acute distress Nutritional Appearance: thin and underweight Orientation/consciousness: patient oriented x3 HEENT Other: Unremarkable Head: Yes normal to inspection Neck Neck: Yes normal visual inspection Chest Chest palpation & inspection: normal inspection of the chest Resp Auscultation: clear to auscultation bilaterally Cardio Palpation: normal PMI Heart sounds: S1 normal heart sound present, S2 normal heart sound present, no gallops, Murmur heart sound present systolic II/ and at the right sternal border and no rubs GI Palpation (GI): Soft to palpation Back/Spine/Pelvis Other: unremarkable Skin General skin exam: no rashes or lesions noted Neuro General: patient oriented x3 Extrem General: Yes normal to inspection Psych Mental Status: mental status grossly normal Assessment & Plan Assessment & Plan (1) Persistent atrial fibrillation: Comment: Status post left atrial appendage removal during surgery. Code(s): I48.19 - Other persistent atrial fibrillation Category: Medical Plan: In the Holter monitor, controlled atrial fibrillation with an average rate of 84/Min. Continue beta-blockers. With regard to anticoagulation, she used to take Eliquis, but did not like the side effects and hence stopped. Then we tried Xarelto but it was too expensive. She has also been on Coumadin but did not like that either. At least take regular aspirin. She is not a good candidate for anticoagulation going forward as she has fallen down so many times. (2) Status post aortic valve replacement with bioprosthetic valve: Comment: 23 mm Batsheva- Sanchez Magna valve; 2018; preoperative cardiac catheterization with minimal luminal irregularities and mild RCA disease. Code(s): Z95.3 - Presence of xenogenic heart valve Category: Surgical Plan: In the echocardiogram, LVEF 53%. Normally functioning bioprosthetic aortic valve. Continue aspirin. Infective endocarditis prophylaxis per protocol. (3) Status post ascending aortic replacement: Comment: #28 Hemashield graft 2018. Code(s): Z95.828 - Presence of other vascular implants and grafts Category: Surgical Plan: CT scans are getting followed through [facility] cardiac surgery. Seems that the ascending aortic findings are stable. (4) Cardiomyopathy: Code(s): I42.9 - Cardiomyopathy, unspecified Category: Medical Plan: Low normal LVEF on the last echocardiogram. No clinical symptoms or signs of congestive heart failure. (5) Essential hypertension: Code(s): I10 - Essential (primary) hypertension Category: Medical Plan: Has had high readings looking at the trend but today's reading is normal. Continue the current regimen including amlodipine, lisinopril, metoprolol. (6) Recurrent falls: Code(s): R29.6 - Repeated falls Category: Medical Plan: Unclear if just related to weight loss and lack of muscle strength. Await MRI brain as ordered by PCP. Obtain physical therapy consultation. Continue blood pressure medications as above and monitor home blood pressures. Plan Discussion Notes During the visit, we discussed the importance of addressing the patient's recurrent falls through physical therapy to enhance her strength and balance. We also talked about the need for an MRI to investigate potential neurological causes of her symptoms. The management of her hypertension and thyroid dysfunction was reviewed, emphasizing medication adherence and follow-up evaluations. Nutritional support was recommended to counteract her weight loss, and we discussed the use of protein shakes. We addressed her cognitive decline and the implementation of blister packs for medication management. Her hearing impairment was considered in planning communication strategies, and her penicillin allergy was noted for future treatment considerations. Patient was informed and verbally consented to the use of an ambient scribe for clinic note documentation during this visit. Patient Instructions: - Attend physical therapy sessions to improve strength and balance. - Complete the MRI of the brain as scheduled. - Take prescribed medications consistently and monitor blood pressure regularly. - Follow up in six weeks for thyroid re-evaluation and potential medication adjustments. - Use blister packs for medication management to ensure adherence. - Ensure a blocker and cutter contact lens is available for medical appointments due to hearing impairment. - Inform healthcare providers of your penicillin allergy before receiving any new medications. Coding Level of Care Code Est Pt Level 4 (86027) Complex EM visit Add On G2211 Diagnoses Persistent atrial fibrillation I48.19 Status post aortic valve replacement with bioprosthetic valve Z95.3 Status post ascending aortic replacement Z95.828 Cardiomyopathy I42.9 Essential hypertension I10 Recurrent falls R29.6
--- OUTSIDE RECORDS SUMMARY | 2024-10-07 14:12 | XMS_ITS | Data Portability ---
Author Organization [place] [facility] Address [address] [place] [address] Care Team Providers Care Enterprise Applications Manager Name Role Phone JOSEPHDUSTIN COOL Primary Care Provider [phone] JOANA MASSEY OTHER [phone] Assessment Encounter Date Assessment Date Assessment LastModified [...] after care of this patient according to [facility]'s infection prevention protocols. [email or web address] Not available 09/17/2022 12:48:04 Plan of Treatment Reminders Order Date Submit Date Provider Last Modified By Organization Details Last Modified Time Details Appointments None recorded. Lab BMP + ionized calcium, serum or plasma 023 023 [facility], [address] [place] [address] Pratik, [place], [address], 05:01:56 Referral None recorded. Procedures None recorded. Surgeries None recorded. Imaging None recorded. Medication Orders None recorded. Patient TargetsNo targets recorded. Patient Instructions Encounter Date Encounter Id Patient Instructions Last Modified By Organization Details Last Modified Time 09/17/2022 [id number] Thank you for yo ur visit with [facility] today. We cannot always find [...] in your condition between 8am-10pm, please call [facility] at [phone] to help navigate your care. Not available 09/17/2022 12:48:11 Lab ResultsBMP + [...] glu 117 mg/dL 70-105 Not Available [address], [address], 09/17/2022 12:08:56 09/18/19 23 09/17/2022 BMP + IONIZ ED CALCI UM, SERUM OR PLASM A BUN 14 mg/dL 8-26 Not Available [address], [address], 09/17/2022 12:08:56 09/18/19 23 09/17/2022 BMP + IONIZ ED CALCI UM, SERUM OR PLASM A crea 0.8 mg/dL 0.6-1. 3 Not Available [address], [address], 09/17/2022 12:08:56 09/18/19 23 09/17/2022 BMP + IONIZ ED CALCI UM, SERUM OR PLASM A Na 139 mmol/ L 138-14 6 Not Available [address], [address], 09/17/2022 12:08:56 09/18/19 23 09/17/2022 BMP + IONIZ ED CALCI UM, SERUM OR PLASM A K 4.0 mmol/ L 3.5-4. 9 Not Available [address], [address], 09/17/2022 12:08:56 09/18/19 23 09/17/2022 BMP + IONIZ ED CALCI UM, SERUM OR PLASM A cL 103 mmol/ L 98-109 Not Available [address], [address], 09/17/2022 12:08:56 09/18/19 23 09/17/2022 BMP + IONIZ ED CALCI UM, SERUM OR PLASM A TCO2 24 mmol/ L 24-29 Not Available [address], [address], 09/17/2022 12:08:56 09/18/19 23 09/17/2022 BMP + IONIZ ED CALCI UM, SERUM OR PLASM A angap 17 mmol/ L 10-20 Not Available [address], [address], 09/17/2022 12:08:56 09/18/19 23 09/17/2022 BMP + IONIZ ED CALCI UM, SERUM OR PLASM A ica 1.20 mmol/ L 1.12-1 .32 Not Available [address], [address], 09/17/2022 12:08:56 09/18/19 23 09/17/2022 BMP + IONIZ ED CALCI UM, SERUM OR PLASM A HCT 41 %pcv 38-51 Not Available [address], [address], 09/17/2022 12:08:56 09/18/19 23 09/17/2022 BMP + IONIZ ED CALCI UM, SERUM OR PLASM A Hb 13.9 g/dL 12-17 Not Available [address], [address], 09/17/2022 12:08:56 09/18/19 elect roclincoln elenagr am No observ ation record ed. Not Available 2022 12:48:45 Result Notes None recorded. Procedures Surgical History Date Name Laterality Status Provider Name and Address Organization Details Recorded Time 09/18/19 Medication Review completed Alis Eastman NP [address], [place], [address], [place] [facility] 09/17/2022 12:12:11 09/18/19 Venipuncture - completed Alis Eastman NP [address], [place], [address], [place] [facility] 09/22/2022 09:20:14 09/18/19 ECG Interpretation - completed Alis Eastman NP [address], [place], [address], [place] [facility] 09/17/2022 12:03:39 replacement of aortic valve completed Alis Eastman NP [address], [place], [address], [place] [facility] 09/17/2022 11:24:07 Imaging Results [...] mm[Hg] Alis Eastman NP [address], [place], [address], [place] [facility] 09/17/2022 12:43:51 Date Recorded Oxygen saturation Oxygen saturation in Arterial blood by Pulse oximetry Body temperature Heart rate Respiratory rate Systolic And Diastolic Provider Name and Address Organization Details Last Updated DateTime 98 % 98 % 97.6 [degF] 88 /min 18 /min 170/100 mm[Hg] Not Available [facility] 12:18:03 Social History Question Answer Notes LastModified by Organizat ion Details LastModified Time Tobacco Smoking Status Never Smoker Alis Eastman, HERIBERTO [address], [place], [address], [place] [facility] 09/17/2022 11:24:19 Do You Have An Advance Directive? No [email or web address] Information not available 09/17/2022 What Is Your Code Status? Full Code [email or web address] Information not available 09/17/2022 Within The Past 12 Months, Has It Happened That The Food You Bought Just Didn't Last And You Didn't Have Money To Get More. Never True [email or web address] Information not available 09/17/2022 Within The Past 12 Months, Have You Worried That Your Food Would Run Out Before You Got Money To Buy More. Never True [email or web address] Information not available 09/17/2022 We Know That How And When People Interact With Friends And Family Can Be Very Different From Person To Person. How Often Do You Have The Opportunity To See Or Talk To People That You Care About And Feel Close To? (Ex: Talking To Friends On The Phone Or Visiting Friends Or Family Or Going To [employer] Or Club Meetings) 5 Or More Times Per Week [email or web address] Information not available 09/17/2022 Excessive Alcohol Or Drug Use No Information not available 09/17/2022 Does This Patient Have A PCP? Yes [email or web address] Information not available 09/17/2022 Has The Patient Seen Their PCP In The Past 6 Months? Yes [email or web address] Information not available 09/17/2022 Is This Patient In Hospice? No [email or web address] Information not available 09/17/2022 ADL: Do You Need Help With Daily Activities Such As Bathing, Preparing Meals, Dressing, Or Cleaning? No [email or web address] Information not available 09/17/2022 Social Support: Do You Feel Safe? Yes [email or web address] Information not available 09/17/2022 We Know From Many Of Our Patients That Covering All Of Their Costs Can Be Difficult At Times. This Can Cause Stress And Impact Health. In The Past Year, Have You Been Unable To Get Any Of The Following When It Was Really Needed? No [email or web address] Information not available 09/17/2022 Would You Like Help Connecting To Resources? None [email or web address] Information not available 09/17/2022 Has Tobacco Cessation Counseling Been Provided? No [email or web address] Information not available 09/17/2022 Sex: Unknown Functional Status Question Answer Note LastModified by Organizat ion Details LastModified Time Do you use any illicit or recreational drugs? No Information not available 09/17/2022 What is your level of alcohol consumption? None Information not available 09/17/2022 Mental Status None recorded. Family History Relationship Description Onset Age of this Age Resolved Age Notes LastModified by Organization Details LastModified Time Father No current problems or disability [email or web address] Not available 09/17 11:23:36 Mother No current problems or disability [email or web address] Not available 09/17 11:23:36 Medical History Condition Response Coronary Artery Disease Y Hypertension Y A-fib Y Gynecological HistoryNo gynecological history recorded. Obstetrics History GPAL:G 0 P 0 0 0 0 Past Encounters Encounter ID Performer Location Encounter Start Date Encounter Closed Date Diagnosis/Indication Diagnosis SNOMED-CT Code Diagnosis ICD10 Code Diagnosis Note [id number] Alis Eastman NP [facility] [address] [facility] [place] [address] 09/17/2022 11:14:26 09/18/2022 18:20:54 Syncope [id number] R55 Status of condition: Acute. Testing/Re sults: [...] all normal. No evidence of dehydratio n, SD, stroke on exam. Plan, Medication Management & [...] and friend [facility] follow up with worsening dizziness or chest pain, concerning symptoms. Pt states that she will not go right now but if things get worse she will. Chronic at rial fibrillation 135291585 I48.20 Status of condition: Chronic. Testing/Re sults:EKG [...] recommenda tions:Take meds as prescribed Essential hypertension [id number] I10 Status of condition: Chronic. Testing/Re sults: [...] Name 09/16/2022 1 *SELF PAY* Sunita Miller [id number] Sunita Miller 09/16/2022 2 [facility] [id number] Sunita Miller [id number] Sunita Miller 09/25/2022 1 [place] [facility] Sunita Miller [id number] Sunita Miller 09/16/2022 1 [place] [facility] Sunita Miller [id number] Sunita Miller 09/18/2022 2 [place] [id number] Sunita Miller [id number] Sunita Miller 09/16/2022 1 [place] [facility] Sunita Miller [id number] Sunita Miller 09/18/2022 2 [place] [id number] Sunita Miller [id number] Sunita Miller Notes Date Note Type [...] medications post aortic stenosis surgery. Unwittnessed fall.Has remote recruiter apt tomorrow.BP normally 130s/70s. Has taken BP meds today.Denies dizziness, chest pain, weakness, seizure activity, headache, Alis Eastman NP [address], [place], [address], [place] [facility] 09/22/2022 09:20:24 OBGyn Episode No OBEpisode recorded.
== END 2024-10-07 14:16 | disposition home or self-care (01) ==
LOC: HO.HCS 13:35
PROVIDERS: PCP Internal Medicine; Visit Provider Internal Medicine
DX: I48.19 Other persistent atrial fibrillation (principal); Z95.3 Presence of xenogenic heart valve; Z95.828 Presence of other vascular implants and grafts; I42.9 Cardiomyopathy, unspecified; I10 Essential (primary) hypertension; R29.6 Repeated falls
CPT/HCPCS: 99214; G2211

== ENCOUNTER → 2024-10-07 13:35 | Outpatient (BNVA) | payer MEDICARE, SELFPAY | PROVIDERS: PCP Internal Medicine; Visit Provider Internal Medicine | DX: I48.19 Other persistent atrial fibrillation (principal); I42.9 Cardiomyopathy, unspecified; I10 Essential (primary) hypertension; R29.6 Repeated falls; Z95.3 Presence of xenogenic heart valve; Z95.828 Presence of other vascular implants and grafts | CPT/HCPCS: 99212 ==

== ENCOUNTER 2024-10-12 14:10 | Outpatient (REF) | payer MEDICARE, SELFPAY ==
--- OUTSIDE RECORDS SUMMARY | 2024-10-12 15:26 | XMS_ITS | Data Portability ---
Author Organization [place] [facility] Address [address] [place] [address] Care Team Providers Care Headend Technician Name Role Phone JOESPHDUSTIN COOL Primary Care Provider JOANA MASSEY OTHER Assessment Encounter Date Assessment Date Assessment LastModified [...] after care of this patient according to [facility]'s infection prevention protocols. [email or web address] Not available 09/17/2022 12:48:04 Plan of Treatment Reminders Order Date Submit Date Provider Last Modified By Organization Details Last Modified Time Details Appointments None recorded. Lab BMP + ionized calcium, serum or plasma [address] [facility], [address] [place] [address] Pratik, [place], [address], 05:01:56 Referral None recorded. Procedures None recorded. Surgeries None recorded. Imaging None recorded. Medication Orders None recorded. Patient TargetsNo targets recorded. Patient Instructions Encounter Date Encounter Id Patient Instructions Last Modified By Organization Details Last Modified Time 09/17/2022 [id number] Thank you for yo ur visit with [facility] today. We cannot always find the exact [...] in your condition between 8am-10pm, please call [facility] at [phone] to help navigate your care. [email or web address] Not available 09/17/2022 12:48:11 Lab ResultsBMP + [...] A glu 117 mg/dL 70-105 Not Available [address], [address], 09/17/2022 12:08:56 09/18/19 23 09/17/2022 BMP + IONIZ ED CALCI UM, SERUM OR PLASM A BUN 14 mg/dL 8-26 Not Available [address], [address], 09/17/2022 12:08:56 09/18/19 23 09/17/2022 BMP + IONIZ ED CALCI UM, SERUM OR PLASM A crea 0.8 mg/dL 0.6-1. 3 Not Available [address], [address], 09/17/2022 12:08:56 09/18/19 23 09/17/2022 BMP + IONIZ ED CALCI UM, SERUM OR PLASM A Na 139 mmol/ L 138-14 6 Not Available [address], [address], 09/17/2022 12:08:56 09/18/19 23 09/17/2022 BMP + IONIZ ED CALCI UM, SERUM OR PLASM A K 4.0 mmol/ L 3.5-4. 9 Not Available [address], [address], 09/17/2022 12:08:56 09/18/19 23 09/17/2022 BMP + IONIZ ED CALCI UM, SERUM OR PLASM A cL 103 mmol/ L 98-109 Not Available [address], [address], 09/17/2022 12:08:56 09/18/19 23 09/17/2022 BMP + IONIZ ED CALCI UM, SERUM OR PLASM A TCO2 24 mmol/ L 24-29 Not Available [address], [address], 09/17/2022 12:08:56 09/18/19 23 09/17/2022 BMP + IONIZ ED CALCI UM, SERUM OR PLASM A angap 17 mmol/ L 10-20 Not Available [address], [address], 09/17/2022 12:08:56 09/18/19 23 09/17/2022 BMP + IONIZ ED CALCI UM, SERUM OR PLASM A ica 1.20 mmol/ L 1.12-1 .32 Not Available [address], [address], 09/17/2022 12:08:56 09/18/19 23 09/17/2022 BMP + IONIZ ED CALCI UM, SERUM OR PLASM A HCT 41 %pcv 38-51 Not Available [address], [address], 09/17/2022 12:08:56 09/18/19 23 09/17/2022 BMP + IONIZ ED CALCI UM, SERUM OR PLASM A Hb 13.9 g/dL 12-17 Not Available [address], [address], 09/17/2022 12:08:56 09/18/19 elect roclincoln elenagr am No observ ation record ed. [email or web address] Not Available 2022 12:48:45 Result Notes None recorded. Procedures Surgical History Date Name Laterality Status Provider Name and Address Organization Details Recorded Time 09/18/19 Medication Review completed Alis Eastman NP [address], [place], [address], [place] [facility] 09/17/2022 12:12:11 09/18/19 Venipuncture - completed Alis Eastman NP [address], [place], [address], [place] [facility] 09/22/2022 09:20:14 09/18/19 ECG Interpretation - completed Alis Eastman NP [address], [place], [address], [place] [facility] 09/17/2022 12:03:39 replacement of aortic valve completed Alis Eastman NP [address], [place], [address], [place] [facility] 09/17/2022 11:24:07 Imaging Results [...] mm[Hg] Alis Eastman NP [address], [place], [address], [place] [facility] 09/17/2022 12:43:51 Date Recorded Oxygen saturation Oxygen saturation in Arterial blood by Pulse oximetry Body temperature Heart rate Respiratory rate Systolic And Diastolic Provider Name and Address Organization Details Last Updated DateTime 98 % 98 % 97.6 [degF] 88 /min 18 /min 170/100 mm[Hg] Not Available [facility] 12:18:03 Social History Question Answer Notes LastModified by Organizat ion Details LastModified Time Tobacco Smoking Status Never Smoker Alis Eastman, HERIBERTO [address], [place], [address], [place] [facility] 09/17/2022 11:24:19 Do You Have An Advance Directive? No Information not available 09/17/2022 What Is Your Code Status? Full Code Information not available 09/17/2022 Within The Past 12 Months, Has It Happened That The Food You Bought Just Didn't Last And You Didn't Have Money To Get More. Never True [email or web address] Information not available 09/17/2022 Within The Past 12 Months, Have You Worried That Your Food Would Run Out Before You Got Money To Buy More. Never True [email or web address] Information not available 09/17/2022 We Know That How And When People Interact With Friends And Family Can Be Very Different From Person To Person. How Often Do You Have The Opportunity To See Or Talk To People That You Care About And Feel Close To? (Ex: Talking To Friends On The Phone Or Visiting Friends Or Family Or Going To Buddhist Or Club Meetings) 5 Or More Times Per Week [email or web address] Information not available 09/17/2022 Excessive Alcohol Or Drug Use No [email or web address] Information not available 09/17/2022 Does This Patient Have A PCP? Yes [email or web address] Information not available 09/17/2022 Has The Patient Seen Their PCP In The Past 6 Months? Yes [email or web address] Information not available 09/17/2022 Is This Patient In Hospice? No [email or web address] Information not available 09/17/2022 ADL: Do You Need Help With Daily Activities Such As Bathing, Preparing Meals, Dressing, Or Cleaning? No [email or web address] Information not available 09/17/2022 Social Support: Do You Feel Safe? Yes Information not available 09/17/2022 We Know From Many Of Our Patients That Covering All Of Their Costs Can Be Difficult At Times. This Can Cause Stress And Impact Health. In The Past Year, Have You Been Unable To Get Any Of The Following When It Was Really Needed? No [email or web address] Information not available 09/17/2022 Would You Like Help Connecting To Resources? None [email or web address] Information not available 09/17/2022 Has Tobacco Cessation Counseling Been Provided? No [email or web address] Information not available 09/17/2022 Sex: Unknown Functional Status Question Answer Note LastModified by Organizat ion Details LastModified Time Do you use any illicit or recreational drugs? No Information not available 09/17/2022 What is your level of alcohol consumption? None [email or web address] Information not available 09/17/2022 Mental Status None recorded. Family History Relationship Description Onset Age of this Age Resolved Age Notes LastModified by Organization Details LastModified Time Father No current problems or disability Not available 09/17 11:23:36 Mother No current problems or disability Not available 09/17 11:23:36 Medical History Condition Response Coronary Artery Disease Y Hypertension Y A-fib Y Gynecological HistoryNo gynecological history recorded. Obstetrics History GPAL:G 0 P 0 0 0 0 Past Encounters Encounter ID Performer Location Encounter Start Date Encounter Closed Date Diagnosis/Indication Diagnosis SNOMED-CT Code Diagnosis ICD10 Code Diagnosis Note [id number] Alis Eastman NP [facility] [address] [place] [address] 09/17/2022 11:14:26 09/18/2022 18:20:54 Syncope [id number] R55 Status of condition: Acute. Testing/Re sults: [...] all normal. No evidence of dehydratio n, [place], stroke on exam. Plan, Medication Management & [...] and friend to drive to her cardi[facility] t tomorrowLo w threshold for ER follow up with worsening dizziness or chest pain, concerning symptoms. Pt states that she will not go right now but if things get worse she will. Chronic at rial fibrillation 684419437 I48.20 Status of condition: Chronic. Testing/Re sults:EKG [...] recommenda tions:Take meds as prescribed Essential hypertension 08068772 I10 Status of condition: Chronic. Testing/Re sults: [...] Guarantor Name 09/16/2022 1 *SELF PAY* Sunita Millre [id number] Sunita Miller 09/16/[address] [facility] [id number] Sunita Miller [id number] Sunita Miller 09/25/2022 1 MEDICARE B-[place]: [facility] Sunita Miller [id number] Sunita Miller 09/16/2022 1 [place]: [facility] Sunita Miller [id number] Sunita Miller 09/18/2022 2 [place] [id number] Sunita Miller [id number] Sunita Miller 09/16/2022 1 [place]: [facility] Sunita Miller [id number] 59 Sunita Miller 09/18/2022 2 [place] [id number] Sunita Miller [id number] Sunita Miller Notes Date Note Type [...] medications post aortic stenosis surgery. Unwittnessed fall.Has sheet metal duct installer apt tomorrow.BP normally 130s/70s. Has taken BP meds today.Denies dizziness, chest pain, weakness, seizure activity, headache, Alis Eastman NP [address], [place], [address], [place] [facility] 09/22/2022 09:20:24 OBGyn Episode No OBEpisode recorded.
[2024-10-13 08:38] LABS: Appearance Urine Clear; Glucose Urine UA Negative (Negative); PH 6.0 (5.0-9.0); Specific Gravity - Urine <= 1.005 (1.005-1.025); UMIC TRIGGER UACC YES
== END 2024-10-12 14:11 | disposition home or self-care (01) ==
LOC: HO.LAB 14:10
PROVIDERS: PCP Physician Assistant Medical; Visit Provider Physician Assistant Medical
DX: R30.0 Dysuria (principal)
CPT/HCPCS: 81001

== ENCOUNTER 2024-10-16 08:39 | Outpatient (REF) | payer MEDICARE, SELFPAY ==
--- NOTE | ~2024-10-16 | CT_ITS ---
EXAMINATION: CT HEAD WITHOUT CONTRAST CLINICAL INFORMATION: R42 - Dizziness and giddiness COMPARISON: August 02, 2024. TECHNIQUE: Contiguous axial imaging was performed from the skull base to vertex without intravenous administration of contrast. This CT examination was performed using dose optimization techniques as appropriate, variously including the following: *Automated exposure control *Adjustment of mA and/or kV according to patient size (this includes techniques or standardized protocols for targeted exams where dose is matched to indication/reason for exam; i.e. extremities or head) *Use of iterative reconstruction technique DLP: 629 mGy-cm FINDINGS: No acute intracranial hemorrhage, mass effect, midline shift, hydrocephalus or herniation. Bilateral multifocal patchy and confluent deep periventricular white matter hypodensities involving centrum semiovale and aguillon radiata. Old lacunar infarcts, basal ganglia and extracapsular and aguillon radiata white matter with similar morphology and distribution pattern. Posterior cranial fossa contents demonstrated no acute hemorrhage or mass effect. Sellar/suprasellar region demonstrated no gross masses. Normal position of the cerebellar tonsils. No air-fluid levels in the paranasal sinuses. Tympanic cavities and mastoid cells are aerated. Pneumatized petrous apices, bilaterally. CT/CT head/brain wo IV con IMPRESSION: No acute intracranial hemorrhage. Extensive white matter disease. Consider small vessel occlusive disease. Electronically signed by: Ross Alfaro MD 10/18/2024 08:05 AM EDT
--- OUTSIDE RECORDS SUMMARY | 2024-10-16 08:42 | XMS_ITS | Data Portability ---
Author Organization [place] [facility] Address [address] [place] [address] Care Team Providers Care Independent Consultant Name Role Phone JOSEPHDUSTIN COOL Primary Care Provider JOANA MASSEY OTHER [...] after care of this patient according to [facility]'s infection prevention protocols. [email or web address] Not available 09/17/2022 12:48:04 Plan of Treatment Reminders Order Date Submit Date Provider Last Modified By Organization Details Last Modified Time Details Appointments None recorded. Lab BMP + ionized calcium, serum or plasma 023 023 [facility], [address] [place] [address] Pratik, [place], [address], 05:01:56 Referral None recorded. Procedures None recorded. Surgeries None recorded. Imaging None recorded. Medication Orders None recorded. Patient TargetsNo targets recorded. Patient Instructions Encounter Date Encounter Id Patient Instructions Last Modified By Organization Details Last Modified Time 09/17/2022 [id number] Thank you for yo ur visit with [facility] today. We cannot always find the exact [...] in your condition between 8am-10pm, please call [facility] at [phone] to help navigate your care. [email or web address] Not available 09/17/2022 12:48:11 Lab ResultsBMP + [...] A glu 117 mg/dL 70-105 Not Available [address], [address], 09/17/2022 12:08:56 09/18/19 23 09/17/2022 BMP + IONIZ ED CALCI UM, SERUM OR PLASM A BUN 14 mg/dL 8-26 Not Available [address], [address], 09/17/2022 12:08:56 09/18/19 23 09/17/2022 BMP + IONIZ ED CALCI UM, SERUM OR PLASM A crea 0.8 mg/dL 0.6-1. 3 Not Available [address], [address], 09/17/2022 12:08:56 09/18/19 23 09/17/2022 BMP + IONIZ ED CALCI UM, SERUM OR PLASM A Na 139 mmol/ L 138-14 6 Not Available [address], [address], 09/17/2022 12:08:56 09/18/19 23 09/17/2022 BMP + IONIZ ED CALCI UM, SERUM OR PLASM A K 4.0 mmol/ L 3.5-4. 9 Not Available [address], [address], 09/17/2022 12:08:56 09/18/19 23 09/17/2022 BMP + IONIZ ED CALCI UM, SERUM OR PLASM A cL 103 mmol/ L 98-109 Not Available [address], [address], 09/17/2022 12:08:56 09/18/19 23 09/17/2022 BMP + IONIZ ED CALCI UM, SERUM OR PLASM A TCO2 24 mmol/ L 24-29 Not Available [address], [address], 09/17/2022 12:08:56 09/18/19 23 09/17/2022 BMP + IONIZ ED CALCI UM, SERUM OR PLASM A angap 17 mmol/ L 10-20 Not Available [address], [address], 09/17/2022 12:08:56 09/18/19 23 09/17/2022 BMP + IONIZ ED CALCI UM, SERUM OR PLASM A ica 1.20 mmol/ L 1.12-1 .32 Not Available [address], [address], 09/17/2022 12:08:56 09/18/19 23 09/17/2022 BMP + IONIZ ED CALCI UM, SERUM OR PLASM A HCT 41 %pcv 38-51 Not Available [address], [address], 09/17/2022 12:08:56 09/18/19 23 09/17/2022 BMP + IONIZ ED CALCI UM, SERUM OR PLASM A Hb 13.9 g/dL 12-17 Not Available [address], [address], 09/17/2022 12:08:56 09/18/19 elect roclincoln elenagr am No observ ation record ed. [email or web address] Not Available 2022 12:48:45 Result Notes None recorded. Procedures Surgical History Date Name Laterality Status Provider Name and Address Organization Details Recorded Time 09/18/19 Medication Review completed Alis Eastman NP [address], [place], [address], [place] [facility] 09/17/2022 12:12:11 09/18/19 Venipuncture - completed Alis Eastman NP [address], [place], [address], [place] [facility] 09/22/2022 09:20:14 09/18/19 ECG Interpretation - completed Alis Eastman NP [address], [place], [address], [place] [facility] 09/17/2022 12:03:39 replacement of aortic valve completed Alis Eastman NP [address], [place], [address], [place] [facility] 09/17/2022 11:24:07 Imaging Results [...] mm[Hg] Alis Eastman NP [address], [place], [address], [place] [facility] 09/17/2022 12:43:51 Date Recorded Oxygen saturation Oxygen saturation in Arterial blood by Pulse oximetry Body temperature Heart rate Respiratory rate Systolic And Diastolic Provider Name and Address Organization Details Last Updated DateTime 98 % 98 % 97.6 [degF] 88 /min 18 /min 170/100 mm[Hg] Not Available [facility] 12:18:03 Social History Question Answer Notes LastModified by Organizat ion Details LastModified Time Tobacco Smoking Status Never Smoker Alis Eastman, HERIBERTO [address], [place], [address], [place] [facility] 09/17/2022 11:24:19 Do You Have An Advance Directive? No [email or web address] Information not available 09/17/2022 What Is Your Code Status? Full Code [email or web address] Information not available 09/17/2022 Within The Past 12 Months, Has It Happened That The Food You Bought Just Didn't Last And You Didn't Have Money To Get More. Never True [email or web address] Information not available 09/17/2022 Within The Past 12 Months, Have You Worried That Your Food Would Run Out Before You Got Money To Buy More. Never True [email or web address] Information not available 09/17/2022 We Know That How And When People Interact With Friends And Family Can Be Very Different From Person To Person. How Often Do You Have The Opportunity To See Or Talk To People That You Care About And Feel Close To? (Ex: Talking To Friends On The Phone Or Visiting Friends Or Family Or Going To [employer] Or Club Meetings) 5 Or More Times Per Week [email or web address] Information not available 09/17/2022 Excessive Alcohol Or Drug Use No Information not available 09/17/2022 Does This Patient Have A PCP? Yes [email or web address] Information not available 09/17/2022 Has The Patient Seen Their PCP In The Past 6 Months? Yes Information not available 09/17/2022 Is This Patient In Hospice? No [email or web address] Information not available 09/17/2022 ADL: Do You Need Help With Daily Activities Such As Bathing, Preparing Meals, Dressing, Or Cleaning? No [email or web address] Information not available 09/17/2022 Social Support: Do You Feel Safe? Yes [email or web address] Information not available 09/17/2022 We Know From Many Of Our Patients That Covering All Of Their Costs Can Be Difficult At Times. This Can Cause Stress And Impact Health. In The Past Year, Have You Been Unable To Get Any Of The Following When It Was Really Needed? No [email or web address] Information not available 09/17/2022 Would You Like Help Connecting To Resources? None [email or web address] Information not available 09/17/2022 Has Tobacco Cessation Counseling Been Provided? No [email or web address] Information not available 09/17/2022 Sex: Unknown Functional [...] 11:23:36 Mother No current problems or disability [email or web address] Not available 09/17 11:23:36 Medical History Condition Response Coronary Artery Disease Y Hypertension Y A-fib Y Gynecological HistoryNo gynecological history recorded. Obstetrics History GPAL:G 0 P 0 0 0 0 Past Encounters Encounter ID Performer Location Encounter Start Date Encounter Closed Date Diagnosis/Indication Diagnosis SNOMED-CT Code Diagnosis ICD10 Code Diagnosis Note [id number] Alis Eastman NP [facility] [address] [facility] [place] [address] 09/17/2022 11:14:26 09/18/2022 18:20:54 Syncope [id number] R55 Status of condition: Acute. Testing/Re sults: [...] all normal. No evidence of dehydratio n, [place], stroke on exam. Plan, Medication Management & [...] and [facility] drive [facility] tomorrowLo w threshold for ER follow up with worsening dizziness or chest pain, concerning symptoms. Pt states that she will not go right now but if things get worse she will. Chronic at rial fibrillation 937750759 I48.20 Status of condition: Chronic. Testing/Re sults:EKG [...] recommenda tions:Take meds as prescribed Essential hypertension 71262174 I10 Status of condition: Chronic. Testing/Re sults: [...] Name 09/16/2022 1 *SELF PAY* Sunita Miller [id number] Sunita Miller 09/16/2022 2 [facility] [id number] Sunita Miller [id number] Sunita Miller 09/25/2022 1 MEDICARE B-[place]: [facility] Suniat Miller [id number] Sunita Miller 09/16/2022 1 [place] [facility] Sunita Miller [id number] Sunita Miller 09/18/2022 2 [place] [id number] Sunita Miller [id number] Sunita Miller 09/16/2022 1 [place] [facility] Sunita Miller [id number] Sunita Miller 09/18/2022 2 [place] [id number] Sunita Miller [id number] Sunita Miller Notes Date Note Type Note Provider Name and Address Organization Details Recorded Time 09/17/2022 text/html General HPI Template - DHReported by Patient Pt states was going outside and the [...] medications post aortic stenosis surgery. Unwittnessed fall.Has service or work dispatcher apt tomorrow.BP normally 130s/70s. Has taken BP meds today.Denies dizziness, chest pain, weakness, seizure activity, headache, Alis Eastman, HERIBERTO [facility] [address], [place], [address], [place] [facility] 09/22/2022 09:20:24 OBGyn Episode No OBEpisode recorded.
== END 2024-10-16 08:40 | disposition home or self-care (01) ==
LOC: HO.CT 08:39
PROVIDERS: PCP Internal Medicine; Visit Provider Physician Assistant Medical
DX: R42 Dizziness and giddiness (principal)
CPT/HCPCS: 70450

== ENCOUNTER → 2024-10-16 09:00 | Outpatient (BNV) | payer MEDICARE, SELFPAY | PROVIDERS: PCP Internal Medicine; Visit Provider Radiology Diagnostic Radiology | DX: R90.82 White matter disease, unspecified (principal) | CPT/HCPCS: 70450 ==

== ENCOUNTER 2024-11-05 10:19 | Outpatient (REF) | payer MEDICARE, SELFPAY ==
[2024-11-05 12:45] LABS: Free T4 (Free Thyroxine) 1.02 ng/dL (0.71-1.85)
[2024-11-05 14:50] LABS: Appearance Urine Clear; Glucose Urine UA Negative (Negative); PH 6.5 (5.0-9.0); Specific Gravity - Urine 1.010 (1.005-1.025); UMIC TRIGGER UACC YES
[2024-11-05 14:58] LABS: UACC Culture Trigger YES
== END 2024-11-05 10:20 | disposition home or self-care (01) ==
LOC: HO.LAB 10:19
PROVIDERS: PCP Internal Medicine; Visit Provider Physician Assistant Medical
DX: Z00.00 Encounter for general adult medical examination without abnormal findings (principal); R53.83 Other fatigue; R30.0 Dysuria
CPT/HCPCS: 36415; 81001; 84439; 84443; 87086

== ENCOUNTER 2025-01-01 09:15 | Outpatient (REF) | payer MEDICARE, SELFPAY | END 2025-01-01 09:16 | disposition home or self-care (01) | LOC: HO.LAB 09:15 | PROVIDERS: PCP Internal Medicine; Visit Provider Physician Assistant Medical | DX: Z00.00 Encounter for general adult medical examination without abnormal findings (principal); E03.8 Other specified hypothyroidism | CPT/HCPCS: 36415; 84443; 84481; 86376 ==

== ENCOUNTER 2025-01-04 13:40 | Outpatient (AMB) | payer MEDICARE, SELFPAY ==
[2025-01-04 13:43] VITALS: BP 130/86; PULSE 80; RESP 16; TEMP 36.2; O2SAT 98; BMI 18.6
--- NOTE | 2025-01-04 13:43 | A.OFFPC_ITS ---
Vital Signs 01/04/25 13:43 01/04/25 17:00 Height 5 ft 6 in Weight 115 lb 4 oz BMI 18.6 BP 130/86 124/70 Blood Pressure Location Lt brachial Position Sitting Respiration 16 Pulse 80 Pulse Source Pulse Oximeter Temp 97.2 F Temp Source Temporal Artery Scan Pulse Oximetry (%) 98 Oxygen Delivery Method Room Air Intake Visit Reasons: 6 month follow up Propellant Charge Loader Required: No Accompanied by: Self / Same As Patient Allergies penicillin V Allergy (Unknown, Verified 01/04/25 17:00) unk Medication List - Last Reconciled 01/04/25 by Naida Iyer PA-C amlodipine 10 mg PO DAILY aspirin (Alfonso Chewable Low Dose Aspirin) 81 mg PO DAILY chlorhexidine gluconate 0.12% 15 mL buccal BID levothyroxine 50 mcg PO DAILY 90 days lisinopril 5 mg PO DAILY mecobalamin (vitamin B12) 1,000 mcg PO DAILY melatonin 3 mg PO BEDTIME PRN metoprolol succinate ER 50 mg PO BID gbtbftsi-uij-vjxo-FA-vit K-lut 8 mg iron-400 mcg-50 mcg (Multivitamin Women 50 Plus) 1 tab PO DAILY propylene glycol 0.6% (Systane Complete) 1 drp ophthalmic (eye) BID PRN vit C,H-Fi-tdlxd-lutein-zeaxan 250-90-40-1 mg (PreserVision AREDS-2) 1 tab PO BID Tobacco use date assessed: 01/04/25 Dental Screening Dental Screen Date: 01/04/25 Did you have a dental visit in the last 12 months?: No Did you have a dental problem in the last 6 months where you did not have access to dental care?: Yes Was dental information given to patient?: Patient has dentist HPI 6 month follow up HPI Details The patient is an 84-year-old female presenting with a six-month follow-up for hypothyroidism management. The patient has been on levothyroxine 50 mcg daily, which has stabilized her thy roid levels, with recent tests showing normal TSH and free T3 levels. She initially experienced issues with a lower dose, which did not adequately control her thyroid function. The patient reports experiencing dry eyes, which she suspects might be a side effect of her medication, although this is not a known side effect of levothyroxine. She has been advised to use artificial tear drops and consider visiting an biological science technician fish for further evaluation. Additionally, the patient reports insomnia, which may be related to her medication or caffeine intake. She has been advised to reduce caffeine intake and consider using melatonin as a sleep aid. The patient has experienced tooth loss, with an oral examination revealing a broken tooth without signs of infection. She has been prescribed chlorhexidine mouthwash to maintain oral hygiene and advised to see a dentist for further evaluation. Social History - Caffeine intake: Patient consumes caff einated tea regularly, which may affect her sleep. [facility] Medical History (Updated 01/04/25 @ 17:03 by Naida Iyer PA-C) Tooth loss Insomnia Dry eyes Dysuria Abnormal gait due to muscle weakness Hypothyroidism (acquired) UTI (urinary tract infection) History of fall Atrial fibrillation Dizziness Fatigue Varicose veins of bilateral lower extremities with pain Gait instability Lower extremity weakness Thrombocytopenia Subclinical hypothyroidism Multilevel cervical spondylosis without myelopathy Evaluation of hearing impairment Recurrent falls Multiple lacunar infarcts Pulmonary nodule Establishing care with new doctor, encounter for History of bicuspid aortic valve Persistent atrial fibrillation Surgical History Status post ascending aortic replacement Status post aortic valve replacement with bioprosthetic valve History of cardiac catheterization (~03/2017) History of transesophageal echocardiography (EDA) (~03/2017) History of aortic valve replacement with bioprosthetic valve (~03/2017) Family History Father No problems noted. Mother No problems noted. Social History Housing: House Alcohol intake: current Alcohol intake frequency: does not drink Patient Tobacco Use Status: Never used Tobacco service: No Current occupational status: retired Cognitive needs: Yes (walker) Hearing needs: No Vision needs: Yes (reading glasses) Questionnaire PHQ-9 Over the last 2 weeks, how often have you been bothered by any of the following problems? 1. Little interest or pleasure in doing things: not at all 2. Feeling down, depressed, or hopeless: not at all 3. Trouble falling or staying asleep, or sleeping too much: not at all 4. Feeling tired or having little energy: not at all 5. Poor appetite or overeating: not at all 6. Feeling bad about yourself - or that you are a failure or have let yourself or your family down: not at all 7. Trouble concentrating on things, such as reading the newspaper or watching television: not at all 8. Moving or speaking so slowly that other people could have noticed. Or the opposite - being so fidgety or restless that you have been moving around a lot more than usual: not at all 9. Thoughts that you would be better off or of hurting yourself in some way: not at all Total score: 0 Depression Screening Interpretation: Negative Depression Screening Done: Yes 35870 - PHQ-9 Billing: Yes Source: Developed by Drs. Miko Bland, Geovanna Davidson, Kevin Gillespie and colleagues, with an educational marie from [employer]. Thrive Questionnaire Date Thrive assessed: 01/04/25 I am a: Patient What is your living situation today?: I have a steady place to live Within the past 12 months, did the food you bought not last and you didn't have the money to get more?: Never true Within the past 12 months, did you worry whether your food would run out before you got money to buy more?: Never true Do you have trouble paying for medicines?: No Do you have trouble getting transportation to medical appointments?: No Do you have trouble paying your heating and electricity bill?: No Do you have trouble taking care of your child, family member or friend?: No Do you have trouble with day-to-day activities such as bathing, preparing meals, shopping, managing finances, etc.?: No Are you currently unemployed and looking for a job?: No Are you interested in more education?: No Please select the resources that you would like help with: None THRIVE Score: 0 AUDIT C Alcohol Use Questionnaire (AUDIT-C) 1. How often do you have a drink containing alcohol?: Never 3. How often do you have six or more drinks on one occasion?: Never Total Score: 0 Score Reviewed/Action Taken: No JESSY-7 AMB Questionnaire JESSY-7 Date JESSY - 7 assessed: 01/04/25 Feeling nervous, anxious, or on edge: 0 = Not at all Not being able to stop or control worryin = Not at all Worrying too much about different things: 0 = Not at all Trouble relaxin = Not at all Being so restless that it is hard to sit still: 0 = Not at all Becoming easily annoyed or irritable: 0 = Not at all Feeling afraid as if something awful might happen: 0 = Not at all Total JESSY-7 score (0-4 normal; 5-9 mild; 10-14 moderate; 15-21 severe): 0 Source: Developed by Drs. Miko Bland, Geovanna Davidson, Kevin Gillespie and colleagues, with an educational marie from [employer]. JESSY-7 Assessment Billing JESSY-7 Assessment Tool: JESSY-7 Assessment 14245 Review of Systems Const Details: - Ophthalmologic: Reports dry eyes. - Neurological: Reports insomnia, denies other neurological symptoms. All systems reviewed & are unremarkable except as noted in HPI and below Physical exam (Primary Care) Vital Signs: Last Vital Signs Temp 97.2 F 01/04/25 13:43 Pulse 80 01/04/25 13:43 Resp 16 01/04/25 13:43 BP 130/86 01/04/25 13:43 Pulse Ox 98 01/04/25 13:43 Oxygen Delivery Method Room Air 01/04/25 13:43 Care Plan Goal for BP management: <140/90 at Goal BMI result Body Mass Index 18.6 Normal BMI Tobacco/Smoking Status: Tobacco use Status Tobacco use date assessed 01/04/25 01/04/25 13:46 Patient Tobacco Use Status Never used Tobacco 01/04/25 13:46 PHQ-9: PHQ-9 Score PHQ-9: Total score 0 01/04/25 13:46 Depression Screening Interpretation: Negative Thrive Assessment: Date of Thrive Assessment Date Thrive assessed 01/04/25 01/04/25 13:46 Const Other: Appearance: Alert. Oriented X3. No acute distress. Head: Normal external exam. Normocephalic. Atraumatic. Eyes: Pupils are equal, round, and reactive to light. Extraocular movements intact. Conjunctiva and sclera normal. Eyelids appear dry. Throat: Pharynx normal. Uvula midline. Moist mucous membranes. Neck: Normal inspection. Neck supple. Full range of motion. Cardiovascular: Normal heart rate and rhythm. Respiratory: No respiratory distress. Painless inspiration. Back: Full range of motion noted. Skin: Skin warm and dry. Normal skin color. Normal skin turgor. No rashes/lesions/lacerations noted. Extremities: No lower extremity edema. Extremities exhibit normal range of motion. Neuro: Oriented X 3. No motor deficit. No sensory deficit. Reflexes normal. Results Reviewed Results Reviewed: - Labs: TSH and free T3 levels are within normal range. Coding Level of Care Code Est Pt Level 4 (23011) Complex EM visit Add On G2211 Diagnoses Hypothyroidism (acquired) E03.9 Dry eyes H04.123 Insomnia G47.00 Tooth loss K08.109 Additional Codes JESSY-7 Assessment Billing - JESSY-7 Assessment Tool: JESSY-7 Assessment 75483 ([id number]) PHQ-9 - 21610 - PHQ-9 Billing: Yes ([id number]) Time Spent (min) 45 Assessment & Plan Assessment & Plan (1) Hypothyroidism (acquired): Code(s): E03.9 - Hypothyroidism, unspecified Category: Medical Plan: The patient's hypothyroidism is managed with levothyroxine 50 mcg daily, maintaining stable thyroid levels. Regular monitoring of thyroid function tests is planned to ensure continued stability. (2) Dry eyes: Code(s): H04.123 - Dry eye syndrome of bilateral lacrimal glands Category: Medical Plan: The patient reports dry eyes, advised to use artificial tear drops and consult an biological science technician fish. (3) Insomnia: Code(s): G47.00 - Insomnia, unspecified Category: Medical Plan: The patient experiences insomnia, advised to reduce caffeine and consider melatonin as a sleep aid. (4) Tooth loss: Code(s): K08.109 - Complete loss of teeth, unspecified cause, unspecified class Category: Medical Plan: The patient has tooth loss, with a broken tooth noted, advised to use chlorhexidine mouthwash and see a dentist. Plan Plan Patient was informed and verbally consented to the use of an ambient scribe for clinic note documentation during this visit. 1. Hypothyroidism The patient's hypothyroidism is managed with levothyroxine 50 mcg daily, maintaining stable thyroid levels. Regular monitoring of thyroid function tests is planned to ensure continued stability. 2. Dry Eyes The patient reports dry eyes, advised to use artificial tear drops and consult an biological science technician fish. 3. Insomnia The patient experiences insomnia, advised to reduce caffeine and consider melatonin as a sleep aid. 4. Tooth Loss The patient has tooth loss, with a broken tooth noted, advised to use c hlorhexidine mouthwash and see a dentist. During the visit, I discussed with the patient the management of her hypothyroidism, emphasizing the importance of continuing levothyroxine 50 mcg daily to maintain stable thyroid levels. We also addressed her dry eyes, recommending artificial tear drops and a consultation with an biological science technician fish. For her insomnia, I suggested reducing caffeine intake and trying melatonin as a sleep aid. Regarding her tooth loss, I advised using chlorhexidine mouthwash and visiting a dentist for further evaluation. Medications: New propylene glycol 0.6% (Systane Complete) 1 drp ophthalmic (eye) BID PRN 10 mL 3RF dry eye(s) melatonin 3 mg PO BEDTIME PRN 90 caps 3RF sleep chlorhexidine gluconate 0.12% 15 mL buccal BID 750 mL 1RF melatonin 3 mg PO BEDTIME PRN 90 caps 3RF sleep propylene glycol 0.6% (Systane Complete) 1 drp ophthalmic (eye) BID PRN 10 mL 3RF dry eye(s) Patient Instructions: - Continue taking levothyroxine 50 mcg daily as prescribed. - Use artificial tear drops for dry eyes and consider seeing an eye doctor. - Reduce caffeine intake and try melatonin for sleep issues. - Use chlorhexidine mouthwash for oral hygiene and visit a dentist for the broken tooth.
[2025-01-04 17:00] VITALS: BP 124/70
== END 2025-01-04 14:24 | disposition home or self-care (01) ==
LOC: HO.HMCSH 13:40
PROVIDERS: PCP Internal Medicine; Visit Provider Physician Assistant Medical
DX: E03.9 Hypothyroidism, unspecified (principal); H04.123 Dry eye syndrome of bilateral lacrimal glands; G47.00 Insomnia, unspecified; K08.109 Complete loss of teeth, unspecified cause, unspecified class

== ENCOUNTER → 2025-01-04 13:40 | Outpatient (BNVA) | payer MEDICARE, SELFPAY | PROVIDERS: PCP Internal Medicine; Visit Provider Physician Assistant Medical | DX: H04.123 Dry eye syndrome of bilateral lacrimal glands (principal); G47.00 Insomnia, unspecified; E03.9 Hypothyroidism, unspecified; K08.409 Partial loss of teeth, unspecified cause, unspecified class | CPT/HCPCS: 96127; 99212 ==